=== PATIENT | female | born 1955 | race Caucasian/White ===

== ENCOUNTER → 2018-09-28 | Outpatient (CLI) | payer OTHER, SELFPAY ==
[2018-09-30 14:18] LABS: HPV Reflexed? NOT INDICATED
== END | disposition home or self-care (01) ==
LOC: LABSPEC 12:02
PROVIDERS: Family Provider Family Medicine; PCP Family Medicine; Referring Provider Nurse Practitioner Adult Health; Visit Provider Nurse Practitioner Adult Health
DX: Z01.419 Encounter for gynecological examination (general) (routine) without abnormal findings (principal)
CPT/HCPCS: 88175; G0145

== ENCOUNTER → 2019-03-25 08:29 | Outpatient (CLI) | payer OTHER, SELFPAY ==
[2019-03-25 10:21] LABS: Anion Gap 6 (5-15); BUN 15 mg/dL (7-18); BUN/Creat Ratio 19.8 RATIO (10-20); Calcium,Total 9.4 mg/dL (8.5-10.1); Chloride 105 mmol/L (98-107); Cholesterol 221 mg/dL (200); Creatinine, Serum 0.76 mg/dL (0.55-1.02); EST Glomerular Filtration Rate 82 mL/min (>60); Est Glom Filt Rate - Afr Amer 99 mL/min (>60); Glucose 100 mg/dL (74-106); High Density Lipoprotein 57 mg/dL; Sodium Level 138 mmol/L (136-145); Triglycerides 93 mg/dL; Very Low Density Lipoprotein 19 mg/dL (5-40)
[2019-03-25 10:35] LABS: Vitamin D,25 Hydroxy 32.8 ng/mL (29.95-100.01)
== END ==
PROVIDERS: PCP Family Medicine; Referring Provider Family Medicine; Visit Provider Family Medicine
DX: E55.9 Vitamin D deficiency, unspecified (principal); I10 Essential (primary) hypertension
CPT/HCPCS: 36415; 80048; 80061; 82306

== ENCOUNTER → 2019-09-23 08:29 | Outpatient (CLI) | payer OTHER, SELFPAY ==
[2019-09-23 10:02] LABS: Anion Gap 6 (5-15); BUN 12 mg/dL (7-18); BUN/Creat Ratio 14.3 RATIO (10-20); Calcium,Total 9.6 mg/dL (8.5-10.1); Chloride 105 mmol/L (98-107); Cholesterol 224 mg/dL (200); Creatinine, Serum 0.84 mg/dL (0.55-1.02); EST Glomerular Filtration Rate 72 mL/min (>60); Est Glom Filt Rate - Afr Amer 88 mL/min (>60); Glucose 104 mg/dL (74-106); High Density Lipoprotein 56 mg/dL; Potassium 3.9 mmol/L (3.5-5.1); Sodium Level 139 mmol/L (136-145); Triglycerides 105 mg/dL; Very Low Density Lipoprotein 21 mg/dL (5-40)
== END ==
PROVIDERS: PCP Family Medicine; Referring Provider Family Medicine; Visit Provider Family Medicine
DX: I10 Essential (primary) hypertension (principal)
CPT/HCPCS: 36415; 80048; 80061

== ENCOUNTER 2020-05-16 06:28 | Day surgery (SDC) | payer OTHER, SELFPAY ==
[2020-04-17 09:11] VITALS: BMI 29.0
[2020-05-16] VITALS (7 sets, daily range): BP systolic 108–153; BP diastolic 53–93; PULSE 74–98; RESP 16–18; TEMP 35.9–36.6; O2SAT 100; BMI 27.6
[2020-05-16] MEDS: Lactated Ringers 1,000 ML 100 ML IV (07:00)
--- NOTE | 2020-05-16 07:22 | HP.PCM_ITS ---
History and Physical Date of Admission: 05/16/20 Date of Service: 04/17/20 MR#: [id number] Acct: [id number] Name: ABAD LOVE Rep #: [id number] : 1955 Provider: Dr. Rafaela Giraldo MD Age/Sex: 64/F Location: [facility] Status: Signed Intake Vital Signs 04/17/20 Height 5 ft 3 in 04/17/20 Weight: 164 lb 2 oz 04/17/20 BMI 29.0 04/17/20 BP 159/99 H 04/17/20 Blood Pressure Location Lt brachial 04/17/20 Position Sitting 04/17/20 Respiration 18 04/17/20 Pulse 96 04/17/20 Pulse Source NIBP 04/17/20 Temp 97.7 F L 04/17/20 Temp Source Temporal 04/17/20 Pulse Oximetry (%) 100 04/17/20 Oxygen Delivery Method room air Intake Visit Reasons: POSITIVE COLOGUARD, CSCOPE Chief Complaint: positive cologuard Merchandise Flow Team Leader Required: No Is patient in pain?: No Allergies Sulfa (Sulfonamide Antibiotics) Allergy (Intermediate, Verified 04/17/20 09:12) hives, mental status change Medications betamethasone valerate 0.1 % lotion ml TOPICAL 04/17/20 [History Confirmed 04/17/20] cholecalciferol (vitamin D3) 25 mcg (1,000 unit) capsule 25 mcg PO DAILY 04/17/20 [History Confirmed 04/17/20] lisinopril 20 mg-hydrochlorothiazide 12.5 mg tablet 1 tab PO DAILY tab 04/17/20 [History Confirmed 04/17/20] rosuvastatin 10 mg tablet 10 mg PO DAILY tab 04/17/20 [History Confirmed 04/17/20] Is last menstrual period known: No Post menopausal: Yes Patient : No PFSH Medical History Hyperlipidemia (Acute) Osteoarthritis (Acute) HTN (hypertension) (Chronic) Surgical History History of cholecystectomy (Acute ~1984) History of colonoscopy (Acute ~08/2008) History of thyroid surgery (Acute ~1973) Family History Sister Heart disease Thyroid disorder Breast cancer COPD (chronic obstructive pulmonary disease) Myocardial infarction Social History (Updated 04/17/20 @ 09:[address] Hedy Giraldo MD) Smoking Status: Light Smoker (<10/day) HPI HPI HPI: ABAD LOVE, is a 64 F who presents to the office today for HPI HPI Surgical H&P: Yes HPI: ABAD LOVE, is a 64 F who presents to the office today for positive Cologuard. Patient states she has bowel movements daily denies any blood denies any family history of colon cancer. Patient last colonoscopy was about 11 years ago thinks she had 1 polyp but was told 10 years. Patient denies any chronic abdominal pain/nausea/vomiting. Patient states she may have reflux symptoms maybe once every 2 months depending on what she eats. ROS General General: No weight change, fatigue, colon cancer, breast cancer or weakness HEENT HEENT: No difficulty swallowing, eye injury, eye surgery, swollen glands or hoarseness Endo Endocrine: No thyroid disease, diabetes mellitus, thyroid cancer, Hair loss, heat intolerance or cold intolerance Musc Musculoskeletal: Yes arthritis; no back problems, rheumatoid arthritis, gout or joint pain Cardio Cardiovascular: Yes high blood pressure; no murmur, pacemaker, heart disease, atrial fibrillation, heart attack, heart stent, palpitations, shortness of breat with exertion or chest pain Psych Psychiatric: No depression, anxiety or hearing voices Resp Respiratory: No shortness of breath, No sleep apnea, No cough, No COPD, No asthma, No emphysema, No wheezing Gastro Gastrointestinal: No abdominal pain, No nausea or vomiting, No diarrhea, No constipation, No blood in stool, No acid reflux, No hemorrhoids, No ulcers, No gallbladder problem, No black,tarry stools Manish Hematologic: No blood thinners, No blood disorders, No bleeding, No anemia, No blood clots Neuro Neurologic: No weakness Exam Const General: cooperative, comfortable, no acute distress Resp Effort & Inspection: normal respiratory effort Cardio Rate: regular rate Heart Sounds: no murmurs GI Inspection: non-distended Palpation: soft, no guarding, nontender Extrem General: no clubbing, cyanosis or edema Psych Affect: normal affect Assessment & Plan Problems 1. Positive colorectal cancer screening using Cologuard test R19.5 Plan I have discussed the above with the patient. I have offered the patient EGD and colonoscopy for evaluation. I have explained the risks/benefits of the procedure and described the procedure. I have discussed the risks with the patient, including but not limited to: infection, bleeding, perforation of the GI tract requiring emergency surgery, inability to complete the procedure, injury to any internal organs, complications of anesthesia, etc. - the patient understands and agrees to proceed. I have answered all the patient's questions to the patient's satisfaction and the patient has no further questions. The patient has been given instructions for the colon cleansing preparation. 1 day of clears, MiraLAX Dulcolax split prep?patient requested May 16 Hedy Giraldo M.D. Pager: [phone] [facility] [address] [place] [address] [address] [place] [id number] Office: [phone] Orders Orders: Colonoscopy Today EGD Today Plan Detail Follow Up We will schedule EGD and colonoscopy?May 16 Coding Level of Care Code Off vis,new,level 3 Diagnoses Positive colorectal cancer screening using Cologuard test R19.5 COVID (Procedure Consent) Procedure Criteria Procedure Criteria: Yes Elective The surgeon/proceduralist and patient have discussed in detail the risk of exposure to and/or potential harm posed by the COVID-19 virus with having a surgery/procedure at this time versus the risk of? delaying the surgery/procedure. It is not possible to know either the risk of delaying the surgery or procedure or chance of getting an infection with perfect accuracy, but a joint decision was made between the patient and the surgeon/proceduralist ?to proceed at this time with the scheduled surgery/procedure as indicated on the consent form. 04/17/20 9538 <Electronically signed by Hedy Menchaca am, MD> Date _ Hedy Giraldo MD
--- NOTE | 2020-05-16 07:30 | EGD_PTH ---
PATIENT: ABAD LOVE LOC: EN U#:[id number] AGE/SX: 64/F ROOM: RE05/16/[address]: Dr. Hedy Giraldo MD : 1955 BED: DIS: 05/16/2020 SPEC #: [id number] RECD: 05/16/20 10:39 STATUS: ZINA REGolden #: [id number] ROCIO: 05/16/20 07:[address]: Hedy Giraldo DEPT: SURGICAL PATHOLOGY RECD BY: Heather Wayne ENTERED: 05/16/20 12:47 SP TYPE: EGD BIOPSY OT DR: Dr. Wilver Etienne MD Tissues: A - Gastric mucous membrane B - Gastric mucous membrane Procedures: Special Stain Group II Surgery Specimen Level IV Alcian Blue/PAS (control) HEADER OPERATION: Colonoscopy, EGD ([facility] [place]) PRE-OP DIAGNOSIS: Cancer screening TISSUE SUBMITTED: A - Antrum biopsy for H. pylori and path, B - GE junction biopsy MICROSCOPIC DIAGNOSIS A. Antrum, biopsy: Mild gastritis. See microscopic description and comment. B. GE junction, biopsy: A fragment of gastric mucosa with mild to moderate chronic inflammation. Intestinal metaplasia (goblet cell metaplasia) not identified. See comment. SJ:rg 05/17/2020 COMMENT A. The results of immunohistochemistry for Helicobacter pylori will be reported separately ([id number]). B. Alcian blue/PAS stain with matched control is used in the evaluation of the specimen. MICROSCOPIC DESCRIPTION Slides are reviewed. A. The specimen shows fragments of gastric mucosa with chronic inflammatory cell infiltrates in the lamina propria consisting of lymphocytes and plasma cells, consistent with mild chronic gastritis. GROSS DESCRIPTION A - Received in fixative is one container labeled with the patient's name and designated antrum biopsy. The specimen consists of one irregular fragment of light gates soft tissue that measures 0.5 x 0.3 x 0.1 cm. The specimen is totally submitted in one cassette. B - Received in fixative is one container labeled with the patient's name and designated GE junction biopsy. The specimen consists of one irregular fragment of light gates soft tissue that measures 0.4 x 0.3 x 0.1 cm. The specimen is totally submitted in one cassette. / JESICA:lexa 05/16/20 TC:3 CPT: 56046 x2, 05821
--- NOTE | 2020-05-16 07:30 | IMM_PTH ---
PATIENT: ABAD LOVE LOC: EN U#:[id number] AGE/SX: 64/F ROOM: RE05/16/[address]: Dr. Hedy Giraldo MD : 1955 BED: DIS: 05/16/2020 SPEC #: [id number] RECD: 05/16/20 12:58 STATUS: ZINA REQ #: [id number] ROCIO: 05/16/20 07:[address]: Hedy Giraldo DEPT: IMMUNOHISTOCHEMISTRY RECD BY: Marcella Ferguson ENTERED: 05/16/20 12:58 SP TYPE: IMMUNO OTHR DR: Dr. Wilver Etienne MD Tissues: A - Stomach, NOS Procedures: H Pylori (initial) PHYSICIAN & INSTITUTION [place] [address] SPECIMEN INFORMATION: Tissue Source: A - Antrum biopsy Clinical Info: Cancer screening Specimen Number: [id number] CPT code: 33495 METHODOLOGY: Deparaffinized sections of prefer/formalin-fixed tissue or PAP/DQ stained slides are incubated with monoclonal/polyclonal antibodies/oligonucleotide probes. Localization is made via biotin free immunoperoxidase method. Appropriate controls are performed and reacted as expected. Results on target cell population are indicated in the following table: RESULTS: ANTIBODY / CLONE RESULT Block A H Pylori (polyclonal) negative These tests were developed and their performance characteristics determined by [facility]. They may not have been cleared or approved by the U.S. Food and Drug Administration. The FDA has determined that such clearance or approval is not necessary. INTERPRETATION: A. Antrum, biopsy: Negative for Helicobacter pylori organisms. JESICA:lexa 05/17/2020
--- NOTE | 2020-05-16 08:05 | OP.EGD_ITS ---
Patient Name: Tona Izquierdo Procedure Date: 05/16/2020 7:14 AM Date of : 1955 Age: 64 Procedure: Upper GI endoscopy Indications: +cologuard Providers: Hedy Giraldo MD Referring MD: Wilver Etienne MD Medicines: Monitored Anesthesia Care Patient Profile: This is a 64 year old female. Complications: No immediate complications. Procedure: Pre-Anesthesia Assessment: - Prior to the procedure, a History and Physical was performed, and patient medications and allergies were reviewed. The patient's tolerance of previous anesthesia was also reviewed. The risks and benefits of the procedure and the sedation options and risks were discussed with the patient. All questions were answered, and informed consent was obtained. Prior Anticoagulants: The patient has taken no previous anticoagulant or antiplatelet agents. ASA Grade Assessment: Per anesthesia. After reviewing the risks and benefits, the patient was deemed in satisfactory condition to undergo the procedure. After obtaining informed consent, the endoscope was passed under direct vision. Throughout the procedure, the patient's blood pressure, pulse, and oxygen saturations were monitored continuously. The gastroscope was introduced through the mouth, and advanced to the second part of duodenum. The upper GI endoscopy was accomplished without difficulty. The patient tolerated the procedure well. Scope In: 7:29:25 AM Scope Out: 7:35:30 AM Total Procedure Duration Time 0 hours 6 minutes 5 seconds Findings: The Z-line was irregular and was found 36 cm from the incisors. Biopsies were taken with a cold forceps for histology. Moderately erythematous mucosa without bleeding was found in the gastric antrum. Biopsies were taken with a cold forceps for Helicobacter pylori cultures. Biopsies were taken with a cold forceps for histology. The examined duodenum was normal. The cardia and gastric fundus were normal on retroflexion. Impression: - Z-line irregular, 36 cm from the incisors. Biopsied. - Erythematous mucosa in the antrum. Biopsied. - Normal examined duodenum. Recommendation: - Await pathology results. - Discharge patient to home. - Resume previous diet. - Continue present medications. - Use Protonix (pantoprazole) 40 mg PO daily for 1 month. Procedure Code(s): --- Professional --- 65291, Esophagogastroduodenoscopy, flexible, transoral; with biopsy, single or multiple Diagnosis Code(s): --- Professional --- K22.8, Other specified diseases of esophagus K31.89, Other diseases of stomach and duodenum CPT copyright 2017 [employer]. All rights reserved. The codes documented in this report are preliminary and upon costume director review may be revised to meet current compliance requirements. MD Hedy Acevedo MD 05/16/2020 8:05:31 AM This report has been signed electronically. Number of Addenda: 0 Note Initiated On: 05/16/2020 7:14 AM
--- NOTE | 2020-05-16 08:05 | OP.CCLET_ITS ---
05/16/2020 Wilver Etienne MD [address] [id number] Re : Upper GI endoscopy procedure for Tona Izquierdo Dear Dr. Etienne This procedure was performed on Saturday, May 16, 2020. My impressions and recommendations are as follows: Impressions : - Z-line irregular, 36 cm from the incisors. Biopsied. - Erythematous mucosa in the antrum. Biopsied. - Normal examined duodenum. Recommendations : - Await pathology results. - Discharge patient to home. - Resume previous diet. - Continue present medications. - Use Protonix (pantoprazole) 40 mg PO daily for 1 month. My findings are described in the full procedure note, which is enclosed. If I can be of further assistance, please feel free to contact me at Doctor phone number(s): , Work: . Sincerely, MD Hedy Acevedo MD 05/16/2020 8:05:31 AM This report has been signed electronically.
--- NOTE | 2020-05-16 08:09 | OP.CCLET_ITS ---
05/16/2020 Wilver Etienne MD [address] [place] [address] Re : Colonoscopy procedure for Tona Izquierdo Dear Dr. Etienne This procedure was performed on Saturday, May 16, 2020. My impressions and recommendations are as follows: Impressions : - Hemorrhoids found on perianal exam. - Non-bleeding internal hemorrhoids. - Diverticulosis in the sigmoid colon and in the descending colon. - The examination was otherwise normal. - No specimens collected. Recommendations : - Discharge patient to home. - High fiber diet. - Continue present medications. - Repeat colonoscopy in 10 years for screening purposes. My findings are described in the full procedure note, which is enclosed. If I can be of further assistance, please feel free to contact me at Doctor phone number(s): , Work: . Sincerely, MD Hedy Acevedo MD 05/16/2020 8:08:47 AM This report has been signed electronically.
--- NOTE | 2020-05-16 08:09 | OP.COLON_ITS ---
Patient Name: Tona Izquierdo Procedure Date: 05/16/2020 7:37 AM Date of : 1955 Age: 64 Procedure: Colonoscopy Indications: Positive Cologuard test Providers: Hedy Giraldo MD Referring MD: Wilver Etienne MD Medicines: Monitored Anesthesia Care Patient Profile: This is a 64 year old female. Last Colonoscopy: more than 10 years ago. Complications: No immediate complications. Procedure: Pre-Anesthesia Assessment: - Prior to the procedure, a History and Physical was performed, and patient medications and allergies were reviewed. The patient's tolerance of previous anesthesia was also reviewed. The risks and benefits of the procedure and the sedation options and risks were discussed with the patient. All questions were answered, and informed consent was obtained. Prior Anticoagulants: The patient has taken no previous anticoagulant or antiplatelet agents. ASA Grade Assessment: Per anesthesia. After reviewing the risks and benefits, the patient was deemed in satisfactory condition to undergo the procedure. After I obtained informed consent, the scope was passed under direct vision. Throughout the procedure, the patient's blood pressure, pulse, and oxygen saturations were monitored continuously. The Colonoscope was introduced through the anus and advanced to the cecum, identified by appendiceal orifice and ileocecal valve. The colonoscopy was performed without difficulty. The patient tolerated the procedure well. The quality of the bowel preparation was good. Scope In: 7:37:53 AM Scope Withdrawal Time 0 hours 13 minutes 9 seconds Scope Out: 7:58:05 AM Total Procedure Duration Time 0 hours 20 minutes 12 seconds Findings: Hemorrhoids were found on perianal exam. Non-bleeding internal hemorrhoids were found. The hemorrhoids were Grade I (internal hemorrhoids that do not prolapse). Many medium-mouthed diverticula were found in the sigmoid colon and descending colon. The exam was otherwise without abnormality. Impression: - Hemorrhoids found on perianal exam. - Non-bleeding internal hemorrhoids. - Diverticulosis in the sigmoid colon and in the descending colon. - The examination was otherwise normal. - No specimens collected. Recommendation: - Discharge patient to home. - High fiber diet. - Continue present medications. - Repeat colonoscopy in 10 years for screening purposes. Procedure Code(s): --- Professional --- 89258, Colonoscopy, flexible; diagnostic, including collection of specimen(s) by brushing or washing, when performed (separate procedure) Diagnosis Code(s): --- Professional --- K64.0, First degree hemorrhoids R19.5, Other fecal abnormalities K57.30, Diverticulosis of large intestine without perforation or abscess without bleeding CPT copyright 2017 [employer]. All rights reserved. The codes documented in this report are preliminary and upon automobile appraiser review may be revised to meet current compliance requirements. MD Hedy Acevedo MD 05/16/2020 8:08:47 AM This report has been signed electronically. Number of Addenda: 0 Note Initiated On: 05/16/2020 7:37 AM
== END 2020-05-16 08:47 | disposition home or self-care (01) ==
LOC: EN 06:29 → AC 06:30
PROVIDERS: PCP Family Medicine; Referring Provider Family Medicine; Visit Provider Surgery
PROC: 0DJD8ZZ Inspection of Lower Intestinal Tract, Via Natural or Artificial Opening Endoscopic (ICD-10-PCS; CPT 45378; principal; 2020-05-16 07:25)
DX: K29.70 Gastritis, unspecified, without bleeding (principal); K64.0 First degree hemorrhoids; K57.30 Diverticulosis of large intestine without perforation or abscess without bleeding; Z20.828 Contact with and (suspected) exposure to other viral communicable diseases; I10 Essential (primary) hypertension; E78.5 Hyperlipidemia, unspecified; M19.90 Unspecified osteoarthritis, unspecified site; E78.00 Pure hypercholesterolemia, unspecified; Z78.0 Asymptomatic menopausal state; Z79.899 Other long term (current) drug therapy; Z87.891 Personal history of nicotine dependence
CPT/HCPCS: 43239; 45378; 87426; 88305; 88313; 88342; C9803; J7120; J2405

== ENCOUNTER → 2020-09-20 08:55 | Outpatient (CLI) | payer OTHER, SELFPAY ==
[2020-05-16 07:02] VITALS: BMI 27.6
[2020-09-20 10:12] LABS: Hematocrit 42.6 % (37-47); Hemoglobin 14.5 g/dL (12.0-15.0); Mean Corpuscular Hgb 31.3 pg (27.0-32.0); Mean Platelet Vol. 9.7 fl (6.2-12.0); Platelet Count 208 K/mm3 (150-450); RBC Distribution Width CV 11.9 % (11.6-14.6); RBC Distribution Width SD 39.9 fl (35.1-43.9); Red Blood Count 4.63 M/mm3 (4.2-5.4); White Blood Count 7.5 K/mm3 (4.4-11.0)
[2020-09-20 10:33] LABS: Anion Gap 8 (5-15); BUN 16 mg/dL (7-18); BUN/Creat Ratio 21.1 RATIO (10-20); Calcium,Total 9.9 mg/dL (8.5-10.1); Chloride 101 mmol/L (98-107); Cholesterol 170 mg/dL (200); Creatinine, Serum 0.76 mg/dL (0.55-1.02); EST Glomerular Filtration Rate 81 mL/min (>60); Est Glom Filt Rate - Afr Amer 98 mL/min (>60); Glucose 105 mg/dL (74-106); High Density Lipoprotein 60 mg/dL; Potassium 4.2 mmol/L (3.5-5.1); Sodium Level 137 mmol/L (136-145); Triglycerides 116 mg/dL; Very Low Density Lipoprotein 23 mg/dL (5-40)
== END ==
PROVIDERS: PCP Family Medicine; Visit Provider Family Medicine
DX: Z00.00 Encounter for general adult medical examination without abnormal findings (principal); I10 Essential (primary) hypertension
CPT/HCPCS: 36415; 80048; 80061; 85027

== ENCOUNTER → 2020-11-07 13:38 | Outpatient (CLI) | payer MEDICARE, SELFPAY ==
--- NOTE | 2020-11-07 13:39 | BI_ITS ---
MAMMOGRAPHY - BILATERAL SCREENING REASON FOR EXAM: Female, 65 years old. Routine annual screening examination. PERTINENT HISTORY: Sister with breast cancer. TECHNIQUE: Digital bilateral breast otf (3D mammographic acquisition) in the CC and MLO projections. 2-D mediolateral oblique (MLO) and craniocaudad (CC) views of both breasts were obtained. CAD: Full Field Digital Mammography with Computer Added Detection was performed. COMPARISON: No comparison mammograms available at this time. If any prior films become available, an addendum to this report can be generated. FINDINGS: Breast Composition: The breasts are heterogeneously dense, which may obscure small masses. There are no dominant masses or suspicious calcifications. There is a 2.3 cm Bard 2 cm dense lymph node in the left axilla. There is a 6.4 mm x 7 mm well-defined nodule in the retroareolar region of the left breast. Correlation with ultrasound is recommended. No other significant abnormalities are identified. BI/SCRN MAMM (CAD)W/OTF BILAT IMPRESSION: 6.4 mm x 7 mm well-defined nodule in the retroareolar region of the left breast. Prominent left axillary lymph node. Correlation with ultrasound is recommended. ASSESSMENT CATEGORY: BIRADS Category 0: Incomplete. Need additional imaging evaluation. A letter regarding these results will be sent to the patient by the facility within 30 days. Approximately 10% of breast cancers are not detected by mammography. A normal mammogram should not delay biopsy of a clinically suspicious abnormality. [id number] Electronically Signed: Mp Ernst MD at 14:28 EDT , Service support ,
== END ==
PROVIDERS: PCP Family Medicine; Referring Provider Family Medicine; Visit Provider Family Medicine
DX: Z12.31 Encounter for screening mammogram for malignant neoplasm of breast (principal)
CPT/HCPCS: 77063; 77067

== ENCOUNTER → 2020-11-09 08:18 | Outpatient (CLI) | payer MEDICARE, SELFPAY ==
--- NOTE | 2020-11-09 08:21 | US_ITS ---
STUDY: ULTRASOUND BREAST - LEFT REASON FOR EXAM: Female, 65 years old. Abnormal screening mammogram. TECHNIQUE: Axial and longitudinal images of the LEFT breast were performed with a high resolution ultrasound transducer. # OF IMAGES: 22 COMPARISON: Comparison is made with prior mammogram dated 11/07/2020. FINDINGS: LEFT Breast: There is a 6 mm x 7 mm x 6 mm hypoechoic well-defined nodule in the retroareolar region of the left breast. This is not a typical cyst. A biopsy recommended. There is evidence of a 2.4 cm x 1.6 x 0.9 cm abnormally enlarged lymph node in the left axilla. Biopsy is recommended. There is also evidence of a second lymph node in the left axilla measuring 1.7 cm x 0.7 cm x 0.9 cm. This appears to have a benign architecture. US/Breast Limited Unilateral IMPRESSION: Suspicious enlarged lymph nodes in the left axilla measuring 2.4 cm x 1.6 cm x 0.9 cm. 6 mm x 7 mm x 6 mm hypoechoic nodule in the retroareolar region of the left breast. Biopsy is recommended. ASSESSMENT CATEGORY: BIRADS Category 4: Suspicious - Biopsy Should Be Considered. A letter regarding these results will be sent to the patient by the facility within 30 days. Electronically Signed: Mp Ernst MD at 10:07 EDT , Service support ,
== END ==
PROVIDERS: PCP Family Medicine; Referring Provider Family Medicine; Visit Provider Family Medicine
DX: N63.42 Unspecified lump in left breast, subareolar (principal)
CPT/HCPCS: 76642

== ENCOUNTER → 2020-11-14 | Outpatient (CLI) | payer MEDICARE, SELFPAY ==
--- NOTE | 2020-11-14 | IMM_PTH ---
PATIENT: ABAD LOVE LOC: [facility] U#:[id number] AGE/SX: 65/F ROOM: RE11/14/[address]: Dr. Hedy Giraldo MD : 1955 BED: DIS: 11/14/2020 SPEC #: [id number] RECD: 11/15/20 13:15 STATUS: ZINA REQ #: [id number] ROCIO: 11/14/20 00:[address]: Hedy Giraldo DEPT: IMMUNOHISTOCHEMISTRY RECD BY: Marcella Ferguson ENTERED: 11/15/20 13:16 SP TYPE: IMMUNO OTHR DR: Dr. Wilver Etienne MD Tissues: B - Axilla, NOS Procedures: CALPONIN-1 (add) CK5-6 (add) CK8 (add) TOVAR-2 (add) E-CAD (add) HER2 DELFINO (add) KI-67 (add) MAMM (add) P53 (add) MI (add) GATA3 (add) P40 (add) ER (initial) PHYSICIAN & INSTITUTION [address] [address] SPECIMEN INFORMATION: Tissue Source: B - Left axilla Clinical Info: Left breast mass and left axillary lymph node enlargement Specimen Number: [id number] CPT code: 43535, 69881 x9, 64142 x3 METHODOLOGY: Deparaffinized sections of prefer/formalin-fixed tissue or PAP/DQ stained slides are incubated with monoclonal/polyclonal antibodies/oligonucleotide probes. Localization is made via biotin free immunoperoxidase method. Appropriate controls are performed and reacted as expected. Results on target cell population are indicated in the following table: RESULTS: ANTIBODY / CLONE RESULT Block B P53 (DO-7) positive, >90% Ki-67 (30-9) positive, >80% CK8 ([id number]) positive CK5-6 (D5 & 1684) positive Calponin-1 (RE973K) negative P40 (BC28) negative E-Cad (ECH-6) positive TOVAR-2 (SP21) positive GATA3 (L50-823) positive Mammaglobin (31A5) negative MORPHOMETRIC ANALYSIS ER (clone 6F11) 0 (negative) MI (clone 16/1E2) 0 (negative) Her-2Neu (clone CB11) 3+(positive) The prognostic test for HER2 is performed on formalin-fixed paraffin embedded tissue. A 3+ (positive) staining pattern is defined as intense, homogeneous, complete, circumferential membranous staining in >10% of contiguous tumor cells. A similar weak (2+) staining pattern is interpreted as equivocal. MOE follow-up testing is recommended for all equivocal cases. Positivity/negativity for ER/MI is reported if > or < 1% of the tumor cells are immuno- reactive, respectively. The ASCO/CAP criteria is used for scoring. Reference: Journal of Clinical Oncology, 2013; 31:3119-3177 & 2010; 16:4759-8083. Duration of fixation: 11 Hrs; Sample Adequate: Yes. These assays have not been validated on decalcified tissues. Results should be interpreted with caution given the likelihood of false negativity on decalcified specimens. These tests were developed and their performance characteristics determined by [facility]. They may not have been cleared or approved by the U.S. Food and Drug Administration. The FDA has determined that such clearance or approval is not necessary. The above immunohistochemical/dualISH markers are ordered and reviewed by the Pathologist. INTERPRETATION: Left axilla, core biopsy: Invasive ductal carcinoma, nuclear grade 2-3. Negative for estrogen receptors (unfavorable prognostic indicator). Negative for progesterone receptors (unfavorable prognostic indicator). Positive for overexpression of [id number]. AM:lexa 11/19/2020
--- NOTE | 2020-11-14 08:30 | BRBX_PTH ---
PATIENT: ABAD LOVE LOC: [facility] U#:[id number] AGE/SX: 65/F ROOM: RE11/14/[address]: Dr. Hedy Giraldo MD : 1955 BED: DIS: 11/14/2020 SPEC #: [id number] RECD: 11/14/20 10:41 STATUS: ZINA REGolden #: [id number] ROCIO: 11/14/20 08:[address]: Hedy Giraldo DEPT: SURGICAL PATHOLOGY RECD BY: Heather Wayne ENTERED: 11/14/20 11:19 SP TYPE: BREAST BX OTHR DR: Dr. Wilver Etienne MD Tissues: A - Left breast, NOS B - Axilla, NOS Procedures: Surgery Specimen Level IV HEADER OPERATION: Left breast mass and left axilla PRE-OP DIAGNOSIS: Left breast mass and left axillary lymph node enlargement TISSUE SUBMITTED: A ? Left breast, B ? Left axilla MICROSCOPIC DIAGNOSIS A. Left breast, core biopsy: Fibrocystic change. No evidence of malignancy. B. Left axilla, core biopsy: Invasive ductal carcinoma with the following characteristics: Maximal length ? 8.5 millimeters Nuclear grade ? 33 See comment. AM:lexa 11/15/2020 COMMENT B. ER/MD/Exh7ega studies are being performed on sections of tumor and the results from this study will be reported separately ([id number]). No lymph node tissue is identified. This case was reviewed and diagnosis discussed with Dr. Giraldo on 11/26/20. This case was discussed with Dr. Giraldo on 05/03/2021. Case has been reviewed in consultation with Dr. Lord who concurs with the above diagnosis. IDC:SJ MICROSCOPIC DESCRIPTION Slides are reviewed. GROSS DESCRIPTION A - Received in fixative is one container labeled with the patient's name and designated left breast. The specimen consists of multiple elongated fragments of gates-yellow fibroadipose tissue that in aggregate measure 1.5 x 0.2 x 0.1 cm. The entire specimen is submitted in one cassette. B - Received in fixative is one container labeled with the patient's name and designated left axilla biopsy. The specimen consists of multiple fragments of gates-yellow fibroadipose tissue that in aggregate measure 1.5 x 0.5 x 0.1 cm. The entire specimen is submitted in one cassette. / SJ:rg 11/14/20 TC:0 CPT: 00145 x2
== END | disposition home or self-care (01) ==
LOC: LABSPEC 10:50
PROVIDERS: PCP Family Medicine; Visit Provider Surgery
DX: C44.509 Unspecified malignant neoplasm of skin of other part of trunk (principal); N60.12 Diffuse cystic mastopathy of left breast
CPT/HCPCS: 88305; 88341; 88342

== ENCOUNTER → 2020-11-26 09:08 | Outpatient (CLI) | payer MEDICARE, SELFPAY ==
--- NOTE | 2020-11-26 09:09 | MRI_ITS ---
STUDY: BILATERAL BREAST MR WITHOUT AND WITH CONTRAST REASON FOR EXAM: Female, 65 years old. New breast cancer diagnosis. TECHNIQUE: Multi-sequence multi-echo imaging of both breasts was performed with a dedicated breast coil. T1-weighted and T2-weighted images were performed before the administration of contrast. T1-weighted images were also performed after the administration of IV 14ml Dotarem without complications. COMPARISON: Bilateral mammogram dated 11/07/2020 and left breast ultrasound dated 11/09/2020. FINDINGS: RIGHT BREAST: The breast tissue is heterogeneously dense with minimal background enhancement. Linear non-mass enhancement at the 12 o''clock position of the breast measuring approximately 12 mm x 3.6 cm x 2 cm. A second look ultrasound of the right breast is recommended for further evaluation of this finding. Scattered normal lymph nodes. LEFT BREAST: The breast tissue is heterogeneously dense with minimal background enhancement. There are no abnormal enhancing masses or areas of non-mass enhancement in the left breast. Solitary enlarged left axillary lymph node measuring 17 mm x 22 mm x 2 cm corresponding to the abnormality seen on the breast ultrasound dated 11/09/2020. There is no abnormality in the visualized regions of the chest or liver. MRI/Breast Bilateral W/O and W IMPRESSION: Solitary enlarged left axillary lymph node on the left corresponding to the ultrasonographic and mammographic findings. Linear non mass enhancement at the 12 o''clock position of the right breast for which further evaluation with second look ultrasound is recommended CATEGORY: BIRADS Category 0: Incomplete. Need additional imaging evaluation. A letter regarding these results will be sent to the patient by the facility within 30 days. Electronically Signed: Tomas Gordon MD at 13:46 EDT , Service support ,
[2020-11-26 10:26] LABS: CREATININE FINGERSTICK 0.7 mg/dL (0.55-1.02); EGFR FINGERSTICK > 60.0000 mL/min (>60)
== END ==
PROVIDERS: PCP Family Medicine; Referring Provider Surgery; Visit Provider Surgery
DX: C50.912 Malignant neoplasm of unspecified site of left female breast (principal)
CPT/HCPCS: 77049; A9575; A4216; C8908

== ENCOUNTER → 2020-11-28 08:54 | Outpatient (CLI) | payer MEDICARE, SELFPAY ==
--- NOTE | 2020-11-28 08:58 | US_ITS ---
STUDY: ULTRASOUND BREAST - RIGHT REASON FOR EXAM: Female, 65 years old. A normal MRI examination. TECHNIQUE: Axial and longitudinal images of the RIGHT breast were performed with a high resolution ultrasound transducer. # OF IMAGES: 21 COMPARISON: Comparison is made with prior MRI of the breasts dated 11/26/2020. FINDINGS: RIGHT Breast: The abnormality corresponds to a dilated duct at the 12 o''clock position of the breast at 1 cm from nipple. US/Breast Limited Unilateral IMPRESSION: Dilated duct. ASSESSMENT CATEGORY: BIRADS Category 2: Benign. A letter regarding these results will be sent to the patient by the facility within 30 days. Electronically Signed: Mp Ernst MD at 10:49 EDT , Service support ,
== END ==
PROVIDERS: PCP Family Medicine; Visit Provider Surgery
DX: C50.912 Malignant neoplasm of unspecified site of left female breast (principal); R59.0 Localized enlarged lymph nodes
CPT/HCPCS: 36415; 76642; 80053; 83615; 85025

== ENCOUNTER → 2020-12-03 06:41 | Outpatient (CLI) | payer MEDICARE, SELFPAY ==
--- NOTE | 2020-12-03 06:52 | CT_ITS ---
EXAM: CT CHEST, ABDOMEN AND PELVIS WITH INTRAVENOUS CONTRAST CLINICAL INDICATION: STAGING BREAST CANCER TECHNIQUE: Helically acquired images were obtained of the chest, abdomen and pelvis with intravenous contrast. This CT exam was performed using one or more of the following dose reduction techniques: automated exposure control, adjustment of the mA and/or kV according to patient size, and/or use of iterative reconstruction technique. This report was created using [employer] report generation technology. Oral contrast was administered. Coronal and sagittal reformatted images were created and reviewed. CONTRAST: 100mL Isovue-300 COMPARISON: None. FINDINGS: CHEST: LUNGS AND PLEURAL SPACES: Unremarkable. No mass. No consolidation or edema. No pleural effusion or thickening. No pneumothorax. HEART: Unremarkable. Heart size is normal. No pericardial effusion. MEDIASTINUM: Unremarkable. No mediastinal or hilar adenopathy. Esophagus is unremarkable. No hiatal hernia. THYROID: Unremarkable. No thyroid lesions. ABDOMEN: LIVER: Unremarkable. Homogeneous. No focal mass. GALLBLADDER AND BILE DUCTS: Cholecystectomy. No intra- or extrahepatic biliary ductal dilation. PANCREAS: Unremarkable. No focal cystic or solid mass. SPLEEN: Unremarkable. Normal size without focal cystic or solid mass. ADRENALS: Unremarkable. No nodules. KIDNEYS AND URETERS: Asymmetric right renal atrophy with cortical scarring. No hydronephrosis. STOMACH AND BOWEL: Colonic diverticulosis and colonic fecal residue but no colon wall thickening. No stomach or bowel distention. PELVIS: APPENDIX: No evidence of acute appendicitis. BLADDER: Unremarkable. REPRODUCTIVE: Uterus is atrophic. CHEST, ABDOMEN and PELVIS: INTRAPERITONEAL SPACE: Unremarkable. No ascites or other fluid collection. No free air. BONES/JOINTS: Degenerative changes of the thoracic and lumbar spine. Mild compression deformity of L3, chronic appearing. No suspicious lytic or blastic abnormality. SOFT TISSUES: Unremarkable. No discrete abdominal or pelvic wall hernia. VASCULATURE: Atherosclerosis of the abdominal aorta. Aorta is non-dilated. No aortic dissection. No obvious central pulmonary embolism although this study was not performed with the pulmonary embolism protocol. LYMPH NODES: Enlarged lobular lymph node of left axilla measures 1.[address]/CT Chest, Abd, Pel w/Contrast IMPRESSION: 1. Enlarged lobular lymph node of left axilla measures 1.3 x 2.5 cm. Suspicious left axillary adenopathy. Tissue sampling recommended, if not previously performed. 2. Additional chronic changes of the chest, abdomen and pelvis, as above. Electronically Signed: Erlin Schultz MD (Brooks) at 8:10 EDT , Service support ,
== END ==
PROVIDERS: PCP Family Medicine; Referring Provider Internal Medicine Medical Oncology; Visit Provider Internal Medicine Medical Oncology
DX: C50.912 Malignant neoplasm of unspecified site of left female breast (principal)
CPT/HCPCS: 71260; 74177; Q9967

== ENCOUNTER → 2020-12-06 07:40 | Outpatient (CLI) | payer MEDICARE, SELFPAY ==
--- NOTE | 2020-12-06 07:57 | NM_ITS ---
CLINICAL: 65-year-old female with reported history of carcinoma of the breast. WHOLE BODY 99m Tc MDP RADIONUCLIDE BONE SCINTIGRAPHY COMPARISON: CT of the chest, abdomen and pelvis reports 12/03/2020 FINDINGS: Following the intravenous administration of 26.8 mCi of 99m Tc MDP, whole body bone images reveal: 1. Focal increased radiopharmaceutical concentration is noted in the right anterior seventh rib at the costochondral junction. 2. Enhanced tracer distribution is observed in the mid cervical spine posteriorly on the left, first and eighth thoracic vertebra posteriorly on the right, caudal aspect of the right and left sacroiliac joints, fourth lumbar vertebra posteriorly on the left and right, the left knee, medial compartments of both ankles. 3. The remaining skeletal structures are scintigraphically unremarkable with normal-appearing renal images and urinary bladder activity identified. NM/Bone Scan Whole Body IMPRESSION: 1. The increase in radiopharmaceutical concentration identified in the right anterior seventh rib consistent with trauma-fracture. Plain film radiography correlation may be of benefit in the setting of known breast carcinoma. 2. Degenerative arthritis appears expressed in the cervical, thoracic and lumbar spine, bilateral sacroiliac joints, the left knee, ankle articulations bilaterally. 3. There is no definitive typical scintigraphic evidence of diffuse axial skeletal metastatic disease on the current examination. Electronically Signed: Aguila Carney DO at 23:11 EDT Tel , Service support ,
--- NOTE | 2020-12-06 08:07 | ECHODONC_ITS ---
Version 2 Reason For Study: PRE PROCEDURAL EXAM, PRE CHEMO Procedure This was a 2D Doppler, Color Flow transthoracic echocardiogram. Myocardial strain analysis was performed in this exam to aid in the assessment of cardiac function. The study was technically difficult. Exam performed in department. Left Ventricle Normal LV size. Left ventricular systolic function is normal. The estimated ejection fraction is 55 %. Stage 1 diastolic dysfunction. No regional wall motion abnormalities noted. Right Ventricle Normal RV size. Normal systolic function. Atria Normal left atrium. Normal right atrium. Mitral Valve Normal mitral valve. Tricuspid Valve Normal tricuspid valve. Mild (1+) tricuspid valve insufficiency. Pulmonary artery systolic pressure is 34 mmHg. Aortic Valve Normal aortic valve. Trisinus/trileaflet aortic valve. Pulmonic Valve Normal pulmonic valve. Great Vessels Normal aortic root. The pulmonary artery is normal size. Normal inferior vena cava. Pericardium/Pleural No pericardial effusion. MMode/2D Measurements & Calculations LVIDd: 3.8 cm IVSd: 1.0 cm Ao root diam: 3.1 cm LVIDs: 2.6 cm LVPWd: 0.99 cm RVDd: 2.5 cm FS: 31.2 % LAV(MOD-bp): 30.6 ml LA A4 area: 13.6 cm2 LA dimension(2D): 3.3 cm LAV(MOD-bp) Indexed: 17.2 ml/m2 LAV(MOD-sp2): 31.0 ml LAV(MOD-sp4): 31.3 ml RA A4 area: 8.0 cm2 Time Measurements MV dec time: 0.16 sec Doppler Measurements & Calculations MV E max beka: 92.0 cm/sec Lat Peak E' Beka: 7.8 cm/sec Med Peak E' Beka: 7.3 cm/sec MV A max beka: 110.1 cm/sec E/E' lat: 11.8 E/E' med: 12.6 MV E/A: 0.84 Ao V2 max: 149.5 cm/sec LV V1 max: 96.1 cm/sec PA V2 max: 110.2 cm/sec Ao max P.9 mmHg LV V1 max P.7 mmHg TR max beka: 270.2 cm/sec TR max P.2 mmHg ECHO/ONC Echo Complete Interpretation Summary Normal LV size. Left ventricular systolic function is normal. The estimated ejection fraction is 55 %. Stage 1 diastolic dysfunction. The global longitudinal strain is borderline abnormal. The global longitudinal strain = -16.7% (abnormal). Ordering Physician: Ravi Casas Referring Physician: Wilver Etienne Performed By: Holly Cordova, MARCOS, RVT
== END ==
PROVIDERS: PCP Family Medicine; Referring Provider Internal Medicine Medical Oncology; Visit Provider Internal Medicine Medical Oncology
DX: Z01.818 Encounter for other preprocedural examination (principal); C50.912 Malignant neoplasm of unspecified site of left female breast; R59.0 Localized enlarged lymph nodes
CPT/HCPCS: 78306; 93306; 93356; A9503

== ENCOUNTER 2020-12-12 05:49 | Day surgery (SDC) | payer MEDICARE, SELFPAY ==
[2020-12-12] VITALS (7 sets, daily range): BP systolic 113–123; BP diastolic 65–86; PULSE 75–91; RESP 16; TEMP 36.1–37; O2SAT 97–100; BMI 28.9
[2020-12-12] MEDS: Lactated Ringers 1,000 ML 100 ML IV (06:37)
--- NOTE | 2020-12-12 06:43 | PCM.HP.BLA ---
History and Physical Date of Admission: 12/12/20 Date of Service: 11/22/20 MR#:[id number]:[id number]: ABAD LOVE [facility] #:[id number]:[id number] Provider:Olamide Watters/Sex: 65/F [place] [place] Int[facility] Intake Visit Reasons: F/U PATHOLOGY Chief Complaint: abn breast US Allergies Sulfa (Sulfonamide Antibiotics) Allergy (Intermediate, Verified 11/14/20 08:19) hives, mental status change [facility] Medical History (Updated 11/22/20 @ 10:[address] Hedy Giraldo MD) HTN (hypertension) Hyperlipidemia Osteoarthritis Surgical History (Updated 05/16/20 @ 07:[address] Hedy Giraldo MD) History of cholecystectomy (~1984) History of colonoscopy (~08/2008) History of thyroid surgery (~1973) Family History (Updated 11/22/20 @ 10:[address] Hedy Giraldo MD) Sister Heart disease Thyroid disorder Breast cancer COPD (chronic obstructive pulmonary disease) Myocardial infarction Aunt Breast cancer Unknown Breast cancer Other Invasive ductal carcinoma of left breast Social History (Updated 04/17/20 @ 09:[address] Hedy Giraldo MD) Smoking Status: Former smoker HPI HPI HPI: ABAD LOVE, is a 65 F who presents to the office today for discussion of breast pathology after biopsy. Patient biopsy of a retroareolar nodule which was consistent with a cyst during the biopsy and was found to just have fibrocystic material on pathology. Patient's left axillary biopsy which could possibly be in the axillary tail of the breast tissue as well was invasive ductal carcinoma grade 3/3 ER/NV negative and HER-2 positive. MRI has been ordered as well as patient has been referred to oncology she does have appointment with Dr. Casas on the . Patient's MRI is currently scheduled for 05 December?MRI is looking to move up once approved through insurance. Exam Const General: cooperative, healthy appearing, comfortable and no acute distress Neck Neck: normal visual inspection Chest Other: Palpation of upper chest normal, left breast: Biopsy sites healing well. Resp Effort & Inspection: normal respiratory effort Cardio Rate: regular rate GI Inspection: non-distended Palpation: soft Skin General: no rashes or lesions noted Neuro General: patient oriented x3 Psych Affect: normal affect Assessment and Plan Assessment and Plan (1) Invasive ductal carcinoma of left breast: Status: Acute Plan: Discussed with and the patient exact treatment plan will depend upon MRI results. Unsure if the left axilla biopsy is actually a breast mass or left axillary lymph node. Also discussed hormone receptor status ER/NV negative and HER-2 positive. Discussed with patient and the that there could be a good chance of patient getting neoadjuvant treatment and then proceeding with surgery but would not know for sure until MRI is completed. Patient initially scheduled 12/05 for MRI. Discussed with MRI department awaiting approval from Medicare and then will plan to move up. Did also discuss with pre-[facility]ERT sounds like it has been approved and they are trying to work on moving the MRI date up to possibly 11/26. I have discussed above with the patient- Port-a-Cath placement. Right IJ-we will schedule after patient seen oncology and MRI is completed. Patient has been counseled as to the risks/benefits of the procedure. I have explained the risks of the surgery, including but not limited to: infection, bleeding, injury to any blood vessels/nerves, injury to lungs (such as pneumothorax or hemothorax and need for chest tube), not having any access, nonfunctioning of port due to thrombosis, infection of port, etc. the patient understands and agrees to proceed. I have answered all the patient's questions to the patient?s satisfaction and the patient has no further questions. Greater than 50% of direct patient contact was spent in counseling or coordination of care. I spent 25 minutes counseling the patient about breast treatment options/neoadjuvant/adjuvant chemotherapy and surgery and coordinating care. Hedy Giraldo M.D. Pager: [phone] [facility] [address] [place] [address], [address] [place] [id number] Office: [phone] Coding Level of Care Code Off vis,est,level 4 Diagnoses Invasive ductal carcinoma of left breast C50.912 11/22/20 1041<Electronically signed by Hedy Giraldo MD>Date Hedy Giraldo MD
[2020-12-12] MEDS: Cefazolin 2 GM in 0.9% Normal Saline 100 ML IV (07:30)
--- NOTE | 2020-12-12 08:03 | RAD_ITS ---
STUDY: X-RAY CHEST REASON FOR EXAM: Female, 65 years old. Port -- pacu TECHNIQUE: Single AP portable view of the chest. COMPARISON: None. FINDINGS: A right-sided portacatheter is been placed. The tip is in the midportion of the superior vena cava. EKG electrodes are seen. The lungs are clear and expanded. There is no demonstrated pleural abnormality. Normal size heart. Normal mediastinum and kennedi. Normal visualized pulmonary arteries. Normal visualized aortic arch and descending thoracic aorta. Normal visualized thoracic spine. Normal visualized ribs, clavicles, and shoulders. The patient is status post cholecystectomy. RAD/CXR for Line Placement IMPRESSION: The tip of the right-sided portacatheter is in the midportion of the superior vena cava. Electronically Signed: Mp Ernst MD at 8:35 EDT , Service support ,
--- NOTE | 2020-12-12 08:04 | OP.PCM_ITS ---
Report of Operation Date of Procedure: 12/12/20 Pre-Operative Diagnosis: z45.2, left ductal carcinoma axillary node Post-Operative Diagnosis: Same Surgery/Procedure Performed:: 1. Insertion of right IJ Port-A-Cath 2. Use of fluoroscopy 3. Use of fluoroscopy Surgeon: Hedy Giraldo Type of Anesthesia: Local MAC Anesthesiologist: Panfilo Huddleston Special Medications: Ancef 2 g IV x1 Estimated Blood Loss (mL): < 10 cc Description of Procedure: After informed consent was given, the patient was brought to the operating room and placed in the supine position. Appropriate time out protocol was followed. Patient was then given IV conscious sedation for anesthesia. The patient's right upper chest and neck were then prepped with a surgical skin preparation and sterile surgical drapes were placed. After proper landmarks were ascertained, the skin at the upper right chest area was then infiltrated with 1:1 mixture of 1% lidocaine with epinephrine and 0.5% marcaine. A needle trocar was then inserted into the right internal jugular vein with ultrasound guidance-multiple vessels were viewed with u/s and the right IJ was chosen-- and there was good aspiration of venous blood. A wire was then threaded into the needle trocar and this was visualized under fluoroscopy to ensure that the wire was in the superior vena cava. Once this was done, then the needle trocar was removed. A small skin chitra was made with an 11 blade knife at the wire entrance site. The dilator with the introducer sheath attached was then placed over the wire into the right internal jugular vein via the Seldinger technique and this was visualized under fluoroscopy. The dilator and sheath were in proper position as visualized by fluoroscopy. A subcutaneous pocket was then created caudad to the catheter insertion site. A transverse skin incision was made after the skin and subcutaneous tissues were infiltrated with local anesthetic. Blunt dissection was then used to create a space large enough for placement of the subcutaneous port. The catheter was then tunneled into the subcutaneous pocket. The wire and dilator were then removed. The catheter was then threaded into the introducer sheath and was positioned with its tip at the junction of the superior vena cava and the right atrium as visualized under fluoroscopy. The excess catheter was transected. The catheter was then attached to the subcutaneous port using manufacturers guidelines. The catheter was flushed with a heparin saline mixture prior to placement. Hemostasis was carefully controlled with electrocautery. The port was sutured to the subcutaneous fascia using 2-0 Vicryl suture at two sites. The port was then placed in the subc utaneous pocket. The incision were reapproximated with interrupted subdermal 3-0 vicryl sutures. The skin was reapproximated with 3-0 nylon suture in a interrupted fashion. Steristrips were used for reinforcement of the skin closure at IJ insertion site and a sterile opsite dressings were applied. The patient tolerated the procedure well. Implants Used: [employer] PowerPort isp M.R.I. 6Fr Lot [id number] [id number] Grafts/Implants Used: [employer] PowerPort isp M.R.I. 6Fr Lot [id number] [id number] Complications none
--- NOTE | 2020-12-12 08:06 | EX.PCM.DISCH ---
Discharge Instructions Procedure Port-A-Cath Diet Discharge Diet: No restrictions (ain medication may cause nausea. You should typically eat light foods as you take your pain medication.) Activity Discharge Activity: Return to Normal Activity and May Shower (with your bandage in place in 1-2 days after surgery. DO NOT SHOWER WHEN YOUR PORT IS ACCESSED.) Dressing / Incision Call your doctor if your incision/area has: Continuous Slow Oozing, Sudden Increased Bleeding, Increased Pain/ Swelling, Increased Redness and Foul Smelling Discharge Call your doctor if you observe: Fever of 101 or Higher Remove Dressing in: 3 days Additional Dressing/Incision Instructions:: Leave the bandage on for 2-3 days. When you remove the bandage, leave the steri-strips intact until they fall off. Follow Up Care Please Follow Up With: Hedy Giraldo MD When: Please call [phone] to schedule a follow up appointment to be seen in 7 days. Test Results: Test results from this visit will be discussed in further detail at your follow-up appointment, if applicable. Discharge Plan Admission Attending Provider: Hedy Giraldo Primary Care Provider: Wilver Etienne Discharge Orders/Prescriptions Prescriptions: New hydrocodone-acetaminophen 5-325 mg tablet 1 tab PO Q6H PRN (Reason: pain) 3 Days Qty: 5 RF: 0 No Action lisinopril-hydrochlorothiazide 20-12.5 mg tablet 1 tab PO DAILY RF: 0 betamethasone valerate 0.1 % lotion 1 % TOPICAL PRN PRN (Reason: SKIN IRRITATION) RF: 0 rosuvastatin 10 mg tablet 10 mg PO DAILY RF: 0 cholecalciferol (vitamin D3) 25 mcg (1,000 unit) capsule 25 mcg PO DAILY RF: 0 calcium carbonate [Calcium 600] 600 mg calcium (1,500 mg) Tablet 600 mg PO DAILY RF: 0 magnesium 200 mg Tablet 300 mg PO DAILY RF: 0 Referrals / Follow Up: Wilver Etienne MD [Primary Care Provider] - Disposition Disposition (needs filled in before D/C Order can be placed): Home, Self Care
== END 2020-12-12 09:15 | disposition home or self-care (01) ==
LOC: SDC 05:51 → AC 05:52
PROVIDERS: PCP Family Medicine; Referring Provider Surgery; Visit Provider Surgery
PROC: (CPT 36561; principal; 2020-12-12 07:15)
DX: Z45.2 Encounter for adjustment and management of vascular access device (principal); C50.912 Malignant neoplasm of unspecified site of left female breast; Z17.1 Estrogen receptor negative status [ER-]; I10 Essential (primary) hypertension; E78.5 Hyperlipidemia, unspecified; E78.00 Pure hypercholesterolemia, unspecified; L40.9 Psoriasis, unspecified; M19.90 Unspecified osteoarthritis, unspecified site; Z87.442 Personal history of urinary calculi; Z79.899 Other long term (current) drug therapy; Z87.891 Personal history of nicotine dependence
CPT/HCPCS: 00532; 36561; 71045; 77001; J7120; J2405

== ENCOUNTER 2021-03-12 09:54 | Outpatient (CLI) | payer MEDICARE, SELFPAY ==
--- NOTE | 2021-03-12 09:56 | ECHOLCONC_ITS ---
Reason For Study: CARDIOTOXIC DRUGS/CHEMOTHERAPY Procedure This was a limited 2D transthoracic echocardiogram. Myocardial strain analysis was performed in this exam to aid in the assessment of cardiac function. The study was technically difficult. Contrast injection was performed. Exam performed in department. Left Ventricle Normal LV size. Left ventricular systolic function is normal. The estimated ejection fraction is 60 %. No regional wall motion abnormalities noted. Right Ventricle Normal RV size. Normal systolic function. Atria Normal left atrium. Normal right atrium. Mitral Valve Normal mitral valve. Tricuspid Valve Normal tricuspid valve. Aortic Valve Normal aortic valve. Trisinus/trileaflet aortic valve. Pulmonic Valve Normal pulmonic valve. Great Vessels Normal aortic root. The pulmonary artery is normal size. Normal inferior vena cava. Pericardium/Pleural No pericardial effusion. Medication 22 gauge I.V. with prn adaptor inserted into left arm. Diluted definity 2.0ml given slow IV push to enhance endocardial definition. MMode/2D Measurements & Calculations LVIDd: 2.9 cm IVSd: 0.83 cm LAV(MOD-bp): 32.6 ml LVIDs: 2.1 cm LVPWd: 0.78 cm FS: 27.2 % LAV(MOD-bp) Indexed: 18.3 ml/m2 LAV(MOD-sp2): 40.3 ml LAV(MOD-sp4): 24.4 ml EDV(MOD-sp4): 69.6 ml EDV(MOD-sp2): 75.4 ml SV(MOD-sp4): 43.9 ml ESV(MOD-sp4): 25.7 ml ESV(MOD-sp2): 22.2 ml EF(MOD-sp4): 63.1 % EF(MOD-sp2): 70.6 % SV(MOD-sp2): 53.2 ml LA A4 area: 11.2 cm2 ECHO/ONC Echo Limited w/Contrast Interpretation Summary Normal LV size. Left ventricular systolic function is normal. The estimated ejection fraction is 60 %. No regional wall motion abnormalities noted. Compared to the previous the strain is unchanged. The global longitudinal strai n is mildly abnormal. The global longitudinal strain = -16.7% (abnormal). Ordering Physician: Ravi Casas Referring Physician: Ravi Casas Performed By: Dayana Fraga, RDCS, RVT
== END 2021-03-12 23:59 | disposition short-term general hospital (02) ==
PROVIDERS: PCP Family Medicine; Referring Provider Internal Medicine Medical Oncology; Visit Provider Internal Medicine Medical Oncology
DX: Z51.11 Encounter for antineoplastic chemotherapy (principal)
CPT/HCPCS: 93308; 93356; Q9957; A4216; C8924

== ENCOUNTER 2021-04-29 10:48 | Outpatient (CLI) | payer MEDICARE, SELFPAY ==
--- NOTE | 2021-04-29 10:48 | MRI_ITS ---
STUDY: BILATERAL BREAST MR WITHOUT AND WITH CONTRAST REASON FOR EXAM: Female, 65 years old. Assess response to neoadjuvant chemotherapy TECHNIQUE: Multi-sequence multi-echo imaging of both breasts was performed with a dedicated breast coil. T1-weighted and T2-weighted images were performed before the administration of contrast. T1-weighted images were also performed after the administration of IV Yes without complications. COMPARISON: FINDINGS: RIGHT BREAST: The breast tissue is heterogeneously dense with minimal background enhancement. There are no abnormal enhancing masses or areas of non-mass enhancement in the right breast. LEFT BREAST: The breast tissue is heterogeneously dense with minimal background enhancement. There are no abnormal enhancing masses or areas of non-mass enhancement in the left breast. Shotty lymph nodes in both axillae. There is no abnormality in the visualized regions of the chest or liver. MRI/Breast Bilateral W/O and W IMPRESSION: Shotty lymph nodes in both axillae. No other abnormality. CATEGORY: BIRADS Category 2: Benign. A letter regarding these results will be sent to the patient by the facility within 30 days. Electronically Signed: Tomas Gordon MD at 14:50 EDT ,
== END 2021-04-29 23:59 | disposition home or self-care (01) ==
PROVIDERS: PCP Family Medicine; Referring Provider Nurse Practitioner Family; Visit Provider Nurse Practitioner Family
DX: C50.912 Malignant neoplasm of unspecified site of left female breast (principal)
CPT/HCPCS: 36591; 77049; 80053; 83735; 85025; A9575; A4216; C8908

== ENCOUNTER 2021-05-20 07:42 | Outpatient (CLI) | payer MEDICARE, SELFPAY ==
[2021-05-20 07:52] VITALS: BP 128/71; PULSE 93; RESP 16; TEMP 36.3; O2SAT 100; BMI 27.1
[2021-05-20 08:29] VITALS: BP 131/73; PULSE 84; RESP 16; TEMP 36.4; O2SAT 99
[2021-05-20 08:51] VITALS: BP 127/69; PULSE 76; RESP 16; TEMP 36.5; O2SAT 99
[2021-05-20] MEDS: 0.9% NaCl VAD Flush IV (08:58)
== END 2021-05-20 23:59 | disposition home or self-care (01) ==
LOC: MEDOUTP 07:42
PROVIDERS: PCP Family Medicine; Referring Provider Surgery; Visit Provider Surgery
DX: D61.818 Other pancytopenia (principal)
CPT/HCPCS: 36430; 36591; 86900; 86901; 86965; J7040; P9035; A4216

== ENCOUNTER 2021-05-21 08:46 | Day surgery (SDC) | payer MEDICARE, SELFPAY ==
[2021-05-17 16:39] LABS: Absolute Lymphocyte Count 1.97 X10^3/uL (0.83-4.51); Absolute Neutrophil Count 1.8 X10^3/uL (2.0-7.7); Basophil# 0.01 X10^3/uL; Basophil% 0.2 % (0-1); Eosinophil# 0.03 X10^3/uL; Eosinophils% 0.7 % (0-5); Hemoglobin 10.5 g/dL (12.0-15.0); Lymphocyte # 1.97 X10^3/ul (0.83-4.51); Lymphocyte % 45.2 % (19-41); Mean Corpuscular Hgb 39.2 pg (27.0-32.0); Mean Corpuscular Volume 111.9 fL (81-99); Mean Platelet Vol. 9.1 fl (6.2-12.0); Monocyte% 11.5 % (0-10); NRBC Flagged by Analyzer 0 % (0-5); Neutrophil # 1.84 X10^3/uL (2.7-7.7); Neutrophil % 42.2 % (47-70); POSITIVE MORPHOLOGY YES; Platelet Count 162 K/mm3 (150-450); RBC Distribution Width CV 14.7 % (11.6-14.6); RBC Distribution Width SD 60.8 fl (35.1-43.9); Red Blood Count 2.68 M/mm3 (4.2-5.4); White Blood Count 4.4 K/mm3 (4.4-11.0)
[2021-05-17 17:10] LABS: Differential Indicated SCAN CRITERIA MET
[2021-05-17 17:12] LABS: Anisocytosis 1+; Atypical Lymphocyte 1+ %; Macrocytosis 1+; Platelet Estimate ADEQUATE (ADEQ); Red Cell Morphology N CHROM NORMAL (NORM C&C)
[2021-05-20 13:19] LABS: Pathologist Review Reviewed
[2021-05-21] VITALS (7 sets, daily range): BP systolic 137–153; BP diastolic 62–97; PULSE 76–94; RESP 16–18; TEMP 36.1–36.8; O2SAT 96–100; BMI 26.5
--- NOTE | 2021-05-21 | AXNB_PTH ---
PATIENT: ABAD LOVE [place] [facility] [id number] AGE/SX: 65/F ROOM: RE05/21/[address]: Dr. Hedy Giraldo MD : 1955 BED: DIS: 05/21/2021 SPEC #: [id number] RECD: 05/21/21 13:14 STATUS: ZINA REGolden #: [id number] ROCIO: 05/21/21 00:[address]: Hedy Giraldo DEPT: SURGICAL PATHOLOGY RECD BY: Marcella Ferguson ENTERED: 05/21/21 13:58 SP TYPE: AX NODE BX OTHR DR: Dr. Wilver Etienne MD Tissues: A - Axillary lymph node, NOS B - Left breast, NOS Procedures: Frozen Section (charge) Surgery Specimen Level IV Surgery Specimen Level V HEADER OPERATION: Left breast wire loc lumpectomy with sentinel lymph node biopsy PRE-OP DIAGNOSIS: Invasive ductal carcinoma of left breast TISSUE SUBMITTED: A ? Left axillary sentinel lymph node, FS, B ? Left breast mass FROZEN SECTION DIAGNOSIS A. Left axillary sentinel lymph node, biopsy: One out of one lymph node, negative for carcinoma. AM: 05/21/2021 MICROSCOPIC DIAGNOSIS A. Left axillary sentinel lymph node, biopsy: One out of one lymph node negative for carcinoma. See comment. B. Left breast mass, lumpectomy: Four out of four lymph node negative for carcinoma. No evidence of malignancy. See comment. AM: 05/27/2021 COMMENT A. Immunohistochemistry ([id number]) supports the above diagnosis. B. Sections of the lumpectomy show fibrofatty and fibrovascular tissue. Four benign lymph nodes are identified in the specimen and all four are negative for carcinoma. Immunohistochemistry ([id number]) supports the above diagnosis. INVASIVE BREAST CARCINOMA SUMMARY (inclusive of previous biopsy [id number]) Procedure: Excision with wire guidance Specimen: Type: Partial breast Size: 4 x 4 x 1.5 cm Laterality: Left breast Tumor: No evidence of residual tumor. Size: 8.5 mm (from previous biopsy) Histologic type: Invasive ductal carcinoma. Focality: Not applicable Histologic grade: 3/3 Ductal Carcinoma In Situ: Not identified Lobular Carcinoma In Situ: Not identified Tumor extension: No applicable Margins: All margins are free of carcinoma. Lymph Nodes: Number of sentinel lymph nodes examined: 1 Total number of lymph nodes examined: 5 No evidence of macrometastases, micrometastases or isolated tumor cells. Treatment Effect: Suspected ? Lymphvascular invasion: Not identified Additional Pathologic Findings: Focal changes of previous biopsy. Ancillary Studies: Previously performed ([id number] / [id number]) ER: negative (0%) LA: negative (0%) Qpm0nzb: positive (3+) IHC Ki67: positive (>80%) Microcalcifications: Not identified. Clinical History: Mass of left breast. PATHOLOGIC STAGE: ypT0 N0 Mx The above summary is in compliance with [employer] (CAP) Cancer Protocol Checklist and [place] Joint Committee on Cancer (AJCC) Staging Manual, 8th Ed. This case was discussed with Dr. Giraldo on 05/24/2021 at 10:35 a.m. Case has been reviewed in consultation with Dr. Lord who concurs with the above diagnosis. IDC:[id number] MICROSCOPIC DESCRIPTION Slides are reviewed. GROSS DESCRIPTION A - Received fresh for frozen section consultation labeled with the patient's name is a specimen designated left axillary sentinel lymph node. The specimen consists of an irregular fragment of yellow fatty tissue measuring 1.8 x 1 x 0.5 cm. Dissection reveals an elongated nodule measuring 1.8 cm in greatest dimension. The nodule is submitted in its entirety for frozen section consultation in one block. B - Received in fixative is one container labeled with the patient's name and designated lumpectomy. The specimen consists of a lumpectomy specimen measuring 4 x 4 x 1.5 cm and weighing 8.1 gm. The specimen contains a metallic wire and is oriented and is differentially inked as follows: anterior - yellow, posterior - black, superior - blue, inferior - green, medial - red and lateral - orange. Serial sections reveal an irregular fibrous area measuring 1.2 x 1 cm and located 0.2 cm from its closest (inferior) margin of resection. The gross is discussed with the surgeon intraoperatively. An ovoid nodule measuring 7 mm is present and may represent a lymph node. The specimen is totally submitted as follows: 1-3 ? fibrous area, 4 ? possible lymph node, 5-10 ? remainder of the specimen. / AM:lexa 05/22/2021 TC:5 CPT: 53941, 68859, 38691
--- NOTE | 2021-05-21 | IMM_PTH ---
PATIENT: ABAD LOVE LOC: [facility] – [place] U#:[id number] AGE/SX: 65/F ROOM: RE05/21/[address]: Dr. Hedy Giraldo MD : 1955 BED: DIS: 05/21/2021 SPEC #: [id number] RECD: 05/24/21 11:16 STATUS: ZINA REQ #: [id number] ROCIO: 05/21/21 00:[address]: Hedy Giraldo DEPT: IMMUNOHISTOCHEMISTRY RECD BY: Marcella Ferguson ENTERED: 05/24/21 11:17 SP TYPE: IMMUNO OTHR DR: Dr. Wilver Etienne MD Tissues: A - Axillary lymph node, NOS B - Left breast, NOS Procedures: CK7 (add) Pankeratin (initial) Pankeratin (add) PHYSICIAN & INSTITUTION [place] [id number] SPECIMEN INFORMATION: Tissue Source: A ? Left axillary sentinel lymph node, B ? Left breast mass Clinical Info: Invasive ductal carcinoma of left breast Specimen Number: [id number] A, B1, B2, B4, B6 CPT code: 61098 x2, 74324 x8 METHODOLOGY: Deparaffinized sections of prefer/formalin-fixed tissue or PAP/DQ stained slides are incubated with monoclonal/polyclonal antibodies/oligonucleotide probes. Localization is made via biotin free immunoperoxidase method. Appropriate controls are performed and reacted as expected. Results on target cell population are indicated in the following table: RESULTS: ANTIBODY / CLONE RESULT Block A AE1-3 (AE1/AE3/PCK26) negative CK7 (OV-TL12/30) negative Block B1 AE1-3 (AE1/AE3/PCK26) negative CK7 (OV-TL12/30) negative Block B2 AE1-3 (AE1/AE3/PCK26) negative CK7 (OV-TL12/30) negative Block B4 AE1-3 (AE1/AE3/PCK26) negative CK7 (OV-TL12/30) negative Block B6 AE1-3 (AE1/AE3/PCK26) negative CK7 (OV-TL12/30) negative These tests were developed and their performance characteristics determined by [facility]. They may not have been cleared or approved by the U.S. Food and Drug Administration. The FDA has determined that such clearance or approval is not necessary. The above immunohistochemical/dualISH markers are ordered and reviewed by the Pathologist. INTERPRETATION: A. Left axillary sentinel lymph node, biopsy: One out of one lymph node negative for carcinoma. B. Left breast mass, lumpectomy: Four out of four lymph nodes negative for carcinoma. AM:lexa 05/27/2021
--- NOTE | 2021-05-21 08:58 | HP.PCM_ITS ---
History and Physical Date of Admission: 05/21/21 Date of Service: 05/03/21 MR#:[id number]:[id number]: ABAD LOVE [facility] #:[id number]:1955 Provider:Olamide Watters/Sex: 65/F [facility] Int[facility] Visit Reasons: BREAST MRI 04/29 Chief Complaint: discuss breast MRI Whipper Required: No Is patient in pain?: No Allergies Sulfa (Sulfonamide Antibiotics) Allergy (Intermediate, Verified 05/03/21 12:52) hives, mental status change Medications betamethasone valerate 0.1 % lotion 1 % TOPICAL PRN PRN 04/17/20 [History Confirmed 05/03/21] cholecalciferol (vitamin D3) 25 mcg (1,000 unit) capsule 25 mcg PO DAILY 04/17/20 [History Confirmed 05/03/21] lisinopril 20 mg-hydrochlorothiazide 12.5 mg tablet 1 tab PO DAILY tab 04/17/20 [History Confirmed 05/03/21] rosuvastatin 10 mg tablet 10 mg PO DAILY tab 04/17/20 [History Confirmed 05/03/21] calcium carbonate [Calcium 600] 600 mg PO DAILY 12/11/20 [History Confirmed 05/03/21] magnesium 300 mg PO DAILY 12/11/20 [History Confirmed 05/03/21] hydrocodone-acetaminophen 1 tab PO Q6H PRN 3 Days #5 tab 12/12/20 [Rx Confirmed 05/03/21] lidocaine-prilocaine 2.5 %-2.5 % topical cream 1 applic TOPICAL ONCE PRN 30 Days #30 g 12/13/20 [Rx Confirmed 05/03/21] ondansetron 8 mg disintegrating tablet 8 mg PO Q8H PRN #30 tab 12/13/20 [Rx Confirmed 05/03/21] prochlorperazine maleate 10 mg tablet 10 mg PO Q6H PRN #30 tab 12/13/20 [Rx Confirmed 05/03/21] omeprazole magnesium 20 mg tablet,delayed release 20 mg PO DAILY #30 tab 02/11/21 [Rx Confirmed 05/03/21] potassium chloride 20 mEq tablet,extended release 20 meq PO BID #60 tab 04/08/21 [Rx Confirmed 05/03/21] Is last menstrual period known: No Post menopausal: Yes Patient : No PFSH Medical History Acid reflux Arthritis Cancer CINV (chemotherapy-induced nausea and vomiting) Dehydration Diarrhea due to drug Dietary restriction Encounter for education Former smoker High cholesterol History of echocardiogram HTN (hypertension) Hyperlipidemia Hypokalemia Injury of head and neck Kidney stone Near syncope Osteoarthritis Port-A-Cath in place Port-A-Cath in place Psoriasis Rash Rib injury Surgical History History of cholecystectomy (~1984) History of colonoscopy (~08/2008) History of esophagogastroduodenoscopy (EGD) History of thyroid surgery (~1973) Family History Sister Heart disease Thyroid disorder Breast cancer COPD (chronic obstructive pulmonary disease) Myocardial infarction Aunt Breast cancer Unknown Breast cancer Other Invasive ductal carcinoma of left breast Social History Smoking Status: Former smoker HPI HPI HPI: ABAD LOVE, is a 65 F who presents to the office today for discussion of surgical treatment for breast cancer. Patient did just finished neoadjuvant therapy 2 weeks ago. Repeat breast MRI shows resolution of previous left breast mass/left lymph node. Patient is ER/RI negative, HER-2 positive. She is biopsy of the left breast mass/possible lymph node did not show any lymphoid tissue at the time of biopsy. ROS General General: Yes breast cancer; No weight change or fatigue Breast Breast: No left breast lump, right breast lump, nipple discharge, breast pain, abnormal mammogram or breast enlargement Cardio Cardiovascular: No chest pain Resp Respiratory: No shortness of breath Gastro Gastrointestinal: No abdominal pain, No nausea or vomiting, No diarrhea, No constipation, No blood in stool, No acid reflux, No hemorrhoids, No ulcers, No gallbladder problem and No black,tarry stools Exam Const General: cooperative, healthy appearing, comfortable and no acute distress [facility] Head: normocephalic and atraumatic Neck Neck: normal visual inspection Chest Breast inspection: normal inspection of the breasts Breast Palpation: Yes normal palpation of the breasts, No no axillary lymphadenopathy, No breast mass, No nipple discharge, No supraclavicular and No change in skin Other: unable to identify the clip with bedside ultrasound Resp Effort & Inspection: normal respiratory effort Cardio Rate: regular rate GI Inspection: non-distended Palpation: soft, no guarding and nontender Skin General: no rashes or lesions noted Neuro General: patient oriented x3 Extrem General: no clubbing, cyanosis or edema Psych Affect: normal affect Assessment and Plan Assessment and Plan (1) Cancer with unknown primary site: Status: Chronic Comment: Left axillary node-breast cancer, no clear primary in the breast or metastatic disease. ER/RI negative, Her2 positive. Declined clinical trial. Began neoadjuvant TCHP 12/17/2020. Finished C6 on 04/15/2021. L axillary node has decrease in size. Counts and chemistry reviewed. (2) Chemotherapy management, encounter for: Status: Acute Comment: Due for C6. Has low Plt. (3) Invasive ductal carcinoma of left breast: Status: Acute Orders: Referrals: Radiation Oncology C80.1, C50.912 Plan - Dr. Hedy Giraldo MD: Reviewed MRI and previous labs with patient and her --thrombocytopenia due to chemo. Discussed with patient that I still have some question if this is truly a lymph node as no lymphoid tissue was seen in biopsy or if it could be the primary in the axillary tail of the breast. I have given the patient options for initial surgical treatment. Options are the following: lumpectomy followed by radiation therapy vs. mastectomy vs. mastectomy followed by immediate reconstruction. I have described the procedures to the patient. I have described the advantages and disadvantages of the options, but I have told the patient that among the options, the survival rate for breast cancer is the same. Discussed with patient that we may not know for sure if the previous mass is primary or LN until surgery with frozen. If primary could do lumpectomy and sentinel LN; if LN would plan for axillary LN dissection and radiation to the breast after surgery. Due to not being able to see clip with bedside U/S, will have patient go to mammography for a trial run prior to surgery to make sure we can localize the clip as it is near chest wall/in axillary tail vs axilla. I have told the patient that with all the surgeries that a sentinel lymph node biopsy is required. I have described the procedure of sentinel lymph node biopsy to the patient. I have told the patient that if the biopsy is positive for metastatic disease, then a full axillary lymph node dissection is required. I have told the patient that adjuvant chemotherapy will be required should the lymph nodes reveal metastatic disease. Also, a full lymph node dissection will increase the risk for lymphedema, especially if there are 4 or more lymph nodes positive for metastatic disease and radiation to the axilla is also required. I have told the patient the risks of surgery, including but not limited to: infection, bleeding, scar tissue, seroma and persistent seroma, lymph leak, injury to any blood vessels, injury to any nerves (particularly the long th oracic, the thoracodorsal, and the second intercostal brachial and the resultant sequelae), lymphedema, cosmetic deformity, dysesthesias, wound infections, further surgery (especially if margins are not clear), complications of anesthesia, etc. the patient understands. The patient will think about the options and discuss it further with the family. The patient will contact me in the next few days when she decides what the patient wishes to do. Pt is leaning towards a lumpectomy and will meet with Dr. Shabazz prior to surgery. Addendum: Patient did meet with Dr. Shabazz and still planning on the lumpectomy and sentinel lymph node biopsy unless the clipped mass is identified as a lymph node and would plan for an axillary lymph node dissection. I have answered all the patient?s questions at this point to her satisfaction and she has no further questions. Coding Level of Care Code Off vis,est,level 5 Diagnoses Cancer with unknown primary site C80.1 Chemotherapy management, encounter for Z51.11 Invasive ductal carcinoma of left breast C50.912 05/05/21 1505<Electronically signed by Hedy Giraldo MD>Date Hedy Giraldo MD
[2021-05-21 09:33] LABS: Platelet Count 196 K/mm3 (150-450)
--- NOTE | 2021-05-21 10:00 | NM_ITS ---
PROCEDURE: NUCLEAR MEDICINE Injection Haskell Node - LEFT breast(s). REASON FOR EXAM: Female, 65 years old. Left breast cancer. TECHNIQUE: Haskell node localization using radionuclide methods of the LEFT breast(s) was performed following subcutaneous administration of 1.1 mCi of of sulfur colloid Tc-99m. FINDINGS: 1.1 mCi of technetium labeled sulfur colloid was injected subcutaneously in 4 equal aliquots in the left periareolar region. NM/Lymph Node Injection Only IMPRESSION: 1.1 mCi of technetium labeled sulfur colloid was injected subcutaneously in 4 equal aliquots for left sentinel node imaging. Electronically Signed: Mp Ernst MD at 10:45 EDT ,
--- NOTE | 2021-05-21 11:00 | BI_ITS ---
SURGICAL BREAST SPECIMEN RADIOGRAPH CLINICAL: Document presence of tissue clip marker in biopsy specimen. FINDINGS: Specimen shows presence of tissue clip marker. Electronically Signed: Mp Ernst MD at 14:00 EDT , BI/Breast Biopsy Specimen
[2021-05-21] MEDS: Cefazolin 2 GM in 0.9% Normal Saline 100 ML IV (12:30)
[2021-05-21] MEDS: 0.9% Normal Saline (Pres. free 10 ML Vial (12:45)
[2021-05-21] MEDS: Isosulfan Blue 1% 5 ML Vial (12:45)
--- NOTE | 2021-05-21 13:46 | PCM.OPRPT ---
Report of Operation Date of Procedure: 05/21/21 Pre-Operative Diagnosis: Left breast cancer Post-Operative Diagnosis: same Surgery/Procedure Performed:: Left stereotactic clip localization lumpectomy, sentinel lymph node biopsy with nuclear tracer and blue dye Description of Surgical Findings:: 1 sentinel node negative?blue & 10 count of 903; no obvious tumor identified at the lumpectomy just some fibrous tissue on quick look by pathology. No obvious lymphoid tissue at the clip on quick look by pathology. Surgeon: Hedy Giraldo magazine grinder loader: Jonah Bejarano Type of Anesthesia: General/Supplemental Anesthesiologist: jv Special Medications: Ancef 2 g IV x1 Specimen's removed: 1. Left sentinel lymph node, 2. Left lumpectomy Drains: None Estimated Blood Loss (mL): 10 cc Description of Procedure: Indications: 65-year-old female with invasive ductal carcinoma in the left breast/axillary tail, HER-2 positive, status post chemotherapy. Postchemotherapy MRI showed likely resolution of the previous clipped positive lesion. It is unsure if this lesion was a lymph node or possibly could be the primary in the axillary tail. As the biopsy only showed tumor. Description of procedure: This surgery was for curative intent. In radiology the breast tissue was injected with TC-9 9 sulfur colloid by the radiologist. Just prior to the OR patient was also taken to mammography and stereotactic needle localization was done of her previous clip as MRI shows a possible complete response. Patient was placed prone on the stereotactic table. The clip was localized. A Bard needle was placed at the clip. 15 degree in -15 degree view showed needle in the appropriate position. Localization studies of exaggerated cc view as well as the MLO view showed the clip was just posterior to the tip of the needle. At least 90 minutes after the nuclear injection, the patient was taken to the operating room and general anesthesia was induced. Localization studies were reviewed. 5 cc of Lymphazurin 1% blue dye was injected in the 4 quadrants periareolar along with 10 cc of normal saline. This was massaged gently for 5 minutes. The left breast and axilla were prepped and draped in usual sterile fashion. A timeout was completed verifying correct patient, procedure, site, positioning, special equipment prior to beginning procedure. Handheld gamma probe was used to identify the location of the hottest spot in the axilla. Prior to the incision, the counts were 20. The incision was made in the hot and blue node was identified. The probe was placed in contact with the node in the 10 count was 903. The bed of the node measured 4 counts. No additional blue or hot or palpable nodes were detected. Frozen showed negative sentinel node. By comparing localization studies with the direction and skin entry of the needle, the probable trajectory and location of the mass was visualized. Due to the location in the axillary tail of the axillary incision was used. Flaps were raised in the location of the wire confirmed. The wire was delivered into the wound. 2 silk hiwngs-lm-yoxyp stay suture was placed around the wire and used for traction. Dissection was then taken down circumferentially, taking care to include the entire localization needle and wide margin of grossly normal tissue. The specimen and entire localizing wire were removed. The specimen was oriented and sent to radiology with the localization studies. Confirmation was received that the entire target area with the entire wire and clip had been resected. 3 medium clips were placed at the base of the the cavity of the the clip lesion. The cavities were irrigated. Hemostasis was checked. space was closed with 2 interrupted 3-0 Vicryl sutures. The breast and axillary incisions were closed with interrupted sutures of 3-0 Vicryl and subcuticular sutures of 4-0 Monocryl and Dermabond. A dressing of fluff gauze and supportive bra placed. The patient tolerated procedure well was taken to the postanesthesia care in stable condition.
--- NOTE | 2021-05-21 13:47 | EX.PCM.DISCH ---
Discharge Instructions Diet Discharge Diet: No restrictions Activity Discharge Activity: May Not Drive (for 2-3 days or while taking narcotic pain meds.) May shower in (days): 1 Lifting Restrictions: 10 pounds for 1 week. Dressing / Incision Call your doctor if your incision/area has: Continuous Slow Oozing, Sudden Increased Bleeding, Increased Pain/ Swelling and Increased Redness Call your doctor if you observe: Fever of 101 or Higher Suture Line Care: Avoid Pulling/Pushing and Avoid Pinching/Bending Remove Dressing in: 1 day Additional Dressing/Incision Instructions:: Remove bulky dressing tomorrow. Dermabond (glue) was used at the axillary incision this may start to peel off in about 5 days. Follow Up Care Please Follow Up With: Hedy Giraldo MD When: Please call [phone] for an appointment to be seen in 2 week. Test Results: Test results from this visit will be discussed in further detail at your follow-up appointment, if applicable. Discharge Plan Admission Attending Provider: Hedy Giraldo Primary Care Provider: Wilver Etienne Instructions Additional Instructions / Restrictions: Okay to take ibuprofen 400-600 mg PO q6hr PRN along with the Percocet. Avoid Tylenol since there is already Tylenol in the Percocet. Take all pain meds with food. Percocet can cause constipation recommend taking daily stool softener (i.e. Colace/docusate) while taking the pain meds. Recommend starting some MiraLAX in 1 to 2 days if no bowel movement. If still no bowel movement the following day recommend taking magnesium citrate half the bottle and waiting 4-6 hours if still no results take the other half the bottle. Discharge Orders/Prescriptions Prescriptions: New oxycodone-acetaminophen 5-325 mg tablet 1 tab PO Q6H PRN (Reason: pain) 3 Days Qty: 7 RF: 0 Continued lisinopril-hydrochlorothiazide 20-12.5 mg tablet 1 tab PO DAILY RF: 0 cholecalciferol (vitamin D3) 25 mcg (1,000 unit) capsule 25 mcg PO DAILY RF: 0 ondansetron 8 mg tablet,disintegrating 8 mg PO Q8H PRN (Reason: nausea and vomiting) Qty: 30 RF: 2 calcium carbonate [Calcium 600] 600 mg calcium (1,500 mg) Tablet 600 mg PO DAILY RF: 0 magnesium 200 mg Tablet 300 mg PO DAILY RF: 0 omeprazole magnesium [Prilosec OTC] 20 mg tablet,delayed release (DR/EC) 20 mg PO DAILY PRN (Reason: GERD) RF: 0 Referrals / Follow Up: Wilver Etienne MD [Primary Care Provider] - Disposition Disposition (needs filled in before D/C Order can be placed): Home, Self Care
[2021-05-21] MEDS: Bupivacaine Mpf 0.5% 30 ML VIAL (13:49)
[2021-05-21] MEDS: 0.9% Saline Lock 10 ML Syringe IV (16:05)
== END 2021-05-21 23:59 | disposition home or self-care (01) ==
LOC: SDC 08:46 → AC 08:46
PROVIDERS: Surgery; PCP Family Medicine; Referring Provider Surgery; Visit Provider Surgery
PROC: 0HBV0ZZ Excision of Bilateral Breast, Open Approach (ICD-10-PCS; CPT 19302; principal; 2021-05-21 12:15)
DX: C50.912 Malignant neoplasm of unspecified site of left female breast (principal); Z80.3 Family history of malignant neoplasm of breast; I10 Essential (primary) hypertension; E78.00 Pure hypercholesterolemia, unspecified; E78.5 Hyperlipidemia, unspecified; Z87.891 Personal history of nicotine dependence; R59.0 Localized enlarged lymph nodes; K21.9 Gastro-esophageal reflux disease without esophagitis; Z87.442 Personal history of urinary calculi; L40.9 Psoriasis, unspecified; Z79.899 Other long term (current) drug therapy; E83.42 Hypomagnesemia; Z95.828 Presence of other vascular implants and grafts; Z86.2 Personal history of diseases of the blood and blood-forming organs and certain disorders involving the immune mechanism
CPT/HCPCS: 19301; 38525; 00404; 19281; 36415; 38792; 76098; 85025; 85049; 87426; 88305; 88307; 88331; 88341; 88342; A9541; C9803; A4216; J2405; J3490; Q9968

== ENCOUNTER → 2021-07-12 | Outpatient (CLI) | payer MEDICARE, SELFPAY ==
--- NOTE | 2021-07-12 13:58 | ECHOLCONC_ITS ---
Reason For Study: HIGH RISK MEDS Procedure This was a limited 2D transthoracic echocardiogram. Myocardial strain analysis was performed in this exam to aid in the assessment of cardiac function. The study was technically difficult. Contrast injection was performed. Exam performed in department. Left Ventricle Normal LV size. Left ventricular systolic function is normal. The estimated ejection fraction is 55 %. No regional wall motion abnormalities noted. Right Ventricle Normal RV size. Normal systolic function. Atria Normal left atrium. Normal right atrium. Mitral Valve Normal mitral valve. Tricuspid Valve Normal tricuspid valve. Aortic Valve Normal aortic valve. Trisinus/trileaflet aortic valve. Pulmonic Valve Normal pulmonic valve. Great Vessels Normal aortic root. The pulmonary artery is normal size. Normal inferior vena cava. Pericardium/Pleural No pericardial effusion. Medication Port access from Radiology Nurse-Monica. Diluted definity 10ml given slow IV push to enhance endocardial definition. MMode/2D Measurements & Calculations LVIDd: 3.8 cm IVSd: 1.0 cm LVIDs: 2.7 cm LVPWd: 0.94 cm FS: 29.2 % ECHO/ONC Echo Limited w/Contrast Interpretation Summary Normal LV size. Left ventricular systolic function is normal. The estimated ejection fraction is 55 %. Structurally normal valves. The global longitudinal strain is normal. The globa l longitudinal strain = -18.5 % (normal). Compared to previous study, the left ventricular systolic f unction is the same.. Ordering Physician: Ravi Casas Referring Physician: Ravi Casas Performed By: Devorah Ham RCS
[2021-07-12] MEDS: 0.9% Saline Lock 10 ML Syringe IV (15:14)
== END | disposition home or self-care (01) ==
LOC: CVS 13:56
PROVIDERS: PCP Family Medicine; Referring Provider Internal Medicine Medical Oncology; Visit Provider Internal Medicine Medical Oncology
DX: Z51.11 Encounter for antineoplastic chemotherapy (principal)
CPT/HCPCS: 93308; 93356; Q9957; A4216; C8924

== ENCOUNTER → 2021-07-19 | Outpatient (CLI) | payer MEDICARE, SELFPAY ==
--- NOTE | 2021-07-19 08:28 | NM_ITS ---
CLINICAL: Female, 66 years old. right scapular pain; left hand pain; h/o breast ca WHOLE BODY NUCLEAR BONE SCAN TECHNIQUE: Following the IV administration of 25.7 mCi of Tc MDP, whole body bone imaging was performed with a gamma camera following a three hour delay. COMPARISON STUDIES : NM - 12/06/2020 CR - Not available for review at this time. CT - Not available for review at this time. MR - Not available for review at this time. US - Not available for review at this time. FINDINGS: There is a normal concentration of radiopharmaceutical throughout the axial and appendicular skeletal system without either a focal decrease or increase in uptake. The amount of increased uptake in the anterior aspect of a lower right rib is decreased consistent with a healing rib fracture. There is a new similar areas of increased uptake within the anterior aspect of a lower left rib consistent with a new fracture. No other foci of increased uptake are identified. Normal concentration of radiopharmaceutical seen by both kidneys with excretion into the bladder. NM/Bone Scan Whole Body IMPRESSION: 1. No scintigraphic evidence of metastatic disease. 2. Improved right rib fracture. 3. New left rib fracture. Electronically Signed: Aguila Noble MD at 7:13 EDT ,
[2021-07-19] MEDS: 0.9% Saline Lock 10 ML Syringe IV (08:40)
== END | disposition home or self-care (01) ==
LOC: NM 08:27
PROVIDERS: PCP Family Medicine; Referring Provider Nurse Practitioner Family; Visit Provider Nurse Practitioner Family
DX: M89.8X1 Other specified disorders of bone, shoulder (principal); C50.912 Malignant neoplasm of unspecified site of left female breast; M79.642 Pain in left hand
CPT/HCPCS: 78306; A9503; A4216

== ENCOUNTER → 2021-10-21 | Outpatient (CLI) | payer MEDICARE, SELFPAY ==
--- NOTE | 2021-10-21 07:49 | ECHOD_ITS ---
Reason For Study: other Procedure This was a 2D Doppler, Color Flow transthoracic echocardiogram. The study was technically difficult. Contrast injection was performed. Exam performed in department. Left Ventricle Normal LV size. Left ventricular systolic function is normal. The estimated ejection fraction is 55 %. Stage 1 diastolic dysfunction. No regional wall motion abnormalities noted. Right Ventricle Normal RV size. Normal systolic function. Atria Normal left atrium. Normal right atrium. Mitral Valve Normal mitral valve. Mild (1+) eccentric mitral valve insufficiency. Tricuspid Valve Normal tricuspid valve. Mild tricuspid valve insufficiency. Pulmonary artery systolic pressure is 25 mmHg. Aortic Valve Trisinus/trileaflet aortic valve. Pulmonic Valve Normal pulmonic valve. Great Vessels Normal aortic root. The pulmonary artery is normal size. Normal inferior vena cava. Pericardium/Pleural No pericardial effusion. Medication Port accessed. Diluted definity 1ml given slow IV push to enhance endocardial definition. MMode/2D Measurements & Calculations LVIDd: 4.1 cm IVSd: 0.83 cm Ao root diam: 3.0 cm LVIDs: 2.8 cm LVPWd: 0.74 cm RVDd: 3.1 cm FS: 32.5 % LAV(MOD-sp4): 53.6 ml LVAd ap4: 30.9 cm2 SV(MOD-sp4): 54.0 ml LVLd ap4: 8.1 cm EDV(MOD-sp4): 96.1 ml EDV(sp4-el): 100.2 ml LVAs ap4: 17.8 cm2 LVLs ap4: 6.4 cm ESV(MOD-sp4): 42.1 ml ESV(sp4-el): 42.3 ml EF(MOD-sp4): 56.2 % EF(sp4-el): 57.8 % SV(sp4-el): 57.9 ml LA A4 area: 19.6 cm2 LA dimension(2D): 3.5 cm RA A4 area: 13.7 cm2 Time Measurements MV dec time: 0.19 sec Doppler Measurements & Calculations MV E max beka: 89.2 cm/sec Lat Peak E' Beka: 10.5 cm/sec MV V2 max: 101.0 cm/sec MV A max beka: 95.5 cm/sec E/E' lat: 8.5 MV max P.1 mmHg MV E/A: 0.93 MV V2 mean: 73.1 cm/sec MV mean P.3 mmHg MV V2 VTI: 27.8 cm MV dec slope: 481.7 cm/sec2 Ao V2 max: 187.3 cm/sec LV V1 max: 116.4 cm/sec Ao max P.0 mmHg LV V1 max P.4 mmHg Ao V2 mean: 133.9 cm/sec LV V1 mean P.2 mmHg Ao mean P.1 mmHg LV V1 mean: 83.9 cm/sec Ao V2 VTI: 40.4 cm LV V1 VTI: 24.7 cm MR max beka: 6.9 cm/sec PA V2 max: 125.3 cm/sec TR max beka: 236.8 cm/sec MR max P.02 mmHg TR max P.4 mmHg ECHO/ONC Echo Complete W/ Contrast Interpretation Summary Normal LV size. Left ventricular systolic function is normal. The estimated ejection fraction is 55 %. Mild tricuspid valve insufficiency. Stage 1 diastolic dysfunction. Ordering Physician: Sunitha Bethea Referring Physician: Sunitha Bethea Performed By: Devorah Ham RCS
== END | disposition home or self-care (01) ==
LOC: CVS 07:48
PROVIDERS: PCP Family Medicine; Referring Provider Nurse Practitioner Family; Visit Provider Nurse Practitioner Family
DX: Z51.11 Encounter for antineoplastic chemotherapy (principal)
CPT/HCPCS: 93306; 93356; Q9957; A4216; C8929

== ENCOUNTER → 2022-04-29 | Outpatient (CLI) | payer MEDICARE, SELFPAY ==
--- NOTE | 2022-04-29 08:53 | BI_ITS ---
MAMMOGRAPHY - BILATERAL DIAGNOSTIC REASON FOR EXAM: Female, 66 years old. Prior left lumpectomy with chemotherapy and radiation. PERTINENT HISTORY: Personal history of breast cancer. Sister with breast cancer. Aunt with breast cancer. TECHNIQUE: Digital bilateral breast lisette (3D mammographic acquisition) in the CC and MLO projections. 2-D mediolateral oblique (MLO) and craniocaudad (CC) views of both breasts were obtained. CAD: Full Field Digital Mammography with Computer Added Detection was performed. COMPARISON: Comparison is made with prior study dated November 07, 2020 and May 21, 2021. FINDINGS: Breast Composition: The breasts are heterogeneously dense, which may obscure small masses. There are no dominant masses or suspicious calcifications. Since prior study, the patient underwent excisional biopsy of a dominant left axillary lymph node. Surgical clips are seen at the biopsy site. A tissue clip marker is also seen in the retroareolar region of the left breast. No other significant abnormalities are identified. BI/DIAG MAMM W/CAD, BILAT IMPRESSION: Status post resection of the left axial lymph node as well as biopsy of the left retroareolar nodule. One year follow-up recommended. (A) ASSESSMENT CATEGORY: BIRADS Category 2: Benign. A letter regarding these results will be sent to the patient by the facility within 30 days. Approximately 10% of breast cancers are not detected by mammography. A normal mammogram should not delay biopsy of a clinically suspicious abnormality. Electronically Signed: Mp Ernst MD at 10:13 EDT ,
== END | disposition home or self-care (01) ==
PROVIDERS: PCP Family Medicine; Visit Provider Student in an Organized Health Care Education/Training Program
DX: C80.1 Malignant (primary) neoplasm, unspecified (principal); Z12.31 Encounter for screening mammogram for malignant neoplasm of breast
CPT/HCPCS: 77062; 77066; G0279

== ENCOUNTER → 2022-05-12 | Outpatient (CLI) | payer MEDICARE, SELFPAY ==
--- NOTE | 2022-05-12 07:59 | ECHOLCONC_ITS ---
Reason For Study: OTHER Procedure This was a limited 2D transthoracic echocardiogram. The study was technically difficult. Contrast injection was performed. Exam performed in department. Left Ventricle Normal LV size. The estimated ejection fraction is 55-60 %. Unable to assess diastolic dysfunction. No regional wall motion abnormalities noted. Right Ventricle Normal RV size. Normal systolic function. Atria Normal left atrium. Normal right atrium. No doppler evidence for ASD. Mitral Valve There is no mitral valve stenosis. not assessed. Tricuspid Valve There is no tricuspid stenosis. not assessed. Aortic Valve The aortic valve is not well visualized. Pulmonic Valve The pulmonic valve is not well visualized. Medication Port accessed by wood and wood products labourer RN. Diluted definity 2ml given slow IV push to enhance endocardial definition. MMode/2D Measurements & Calculations LVIDd: 4.2 cm IVSd: 0.91 cm Ao root diam: 2.7 cm LVIDs: 2.7 cm LVPWd: 1.1 cm FS: 35.4 % LAV(MOD-bp): 22.3 ml LA A4 area: 9.5 cm2 LA dimension(2D): 3.2 cm LAV(MOD-bp) Indexed: 12.5 ml/m2 LAV(MOD-sp2): 25.9 ml LAV(MOD-sp4): 17.4 ml RA A4 area: 7.8 cm2 ECHO/ONC Echo Limited w/Contrast Interpretation Summary The estimated ejection fraction is 55-60 %. Unable to assess diastolic dysfunction. Ordering Physician: Ravi Casas Referring Physician: Wilver Etienne Performed By: Devorah Ham RCS
== END | disposition home or self-care (01) ==
PROVIDERS: PCP Family Medicine; Visit Provider Internal Medicine Medical Oncology
DX: R06.02 Shortness of breath (principal)
CPT/HCPCS: 93308; 93356; Q9957; A4216; C8924

== ENCOUNTER 2022-06-26 14:58 | Outpatient (CLI) | payer MEDICARE, SELFPAY ==
--- NOTE | 2022-06-26 15:13 | VDUE_ITS ---
Reason For Study: Right arm swelling Right Proximal Left Proximal Right jugular vein is spontaneous, widely Left subclavian vein is spontaneous, widely patent, phasic, with no intraluminal patent, phasic, with no intraluminal echogenicity noted. echogenicity noted. Right subclavian vein is spontaneous, widely patent, phasic, with no intraluminal echogenicity noted. Right Lower Arm Right radial vein is compressible. Right ulnar vein is compressible. Right Arm Right axillary vein is spontaneous, patent, phasic, competent, compressible and demonstrates augmentation. Right brachial vein is compressible. Right cephalic vein is compressible. Right basilic vein is compressible. Patient Safety Preliminary report sent to [facility]. VL/Venous Duplex US, Unilateral Interpretation Summary Deep veins of the right upper extremity are patent and compressible segmentally . There is no evidence of deep vein thrombosis. Superficial veins of the right upper extremity are patent and compressible segm entally. There is no evidence of superficial vein thrombosis. Ordering Physician: Rebecca Urbina Referring Physician: Wilver Etienne Performed By: Lindsey Sawyer RVT ???
== END 2022-06-26 23:59 | disposition home or self-care (01) ==
PROVIDERS: PCP Family Medicine; Referring Provider Nurse Practitioner Family; Visit Provider Nurse Practitioner Family
DX: R22.1 Localized swelling, mass and lump, neck (principal); R00.0 Tachycardia, unspecified
CPT/HCPCS: 36415; 80048; 93971

== ENCOUNTER → 2022-06-26 | Outpatient (CLI) | payer MEDICARE, SELFPAY ==
[2022-06-26 19:16] LABS: Anion Gap 9 (5-15); BUN 23 mg/dL (7-18); Calcium,Total 9.4 mg/dL (8.5-10.1); Chloride 107 mmol/L (98-107); Creatinine, Serum 0.88 mg/dL (0.55-1.02); EST Glomerular Filtration Rate 68 mL/min (>60); Est Glom Filt Rate - Afr Amer 82 mL/min (>60); Glucose 122 mg/dL (74-106); Potassium 3.9 mmol/L (3.5-5.1); Sodium Level 140 mmol/L (136-145)
== END | disposition home or self-care (01) ==
LOC: MFPLAB 14:39
PROVIDERS: PCP Family Medicine; Visit Provider Nurse Practitioner Family
DX: R00.0 Tachycardia, unspecified (principal)
CPT/HCPCS: 36415; 80048

== ENCOUNTER → 2022-11-11 | Outpatient (CLI) | payer MEDICARE, SELFPAY ==
--- NOTE | 2022-11-11 10:55 | ECHOLCONC_ITS ---
Reason For Study: OTHER Procedure This was a limited 2D transthoracic echocardiogram. The study was technically difficult. Contrast injection was performed. Exam performed in department. Left Ventricle Normal LV size. Left ventricular systolic function is normal. The estimated ejection fraction is 60 %. No regional wall motion abnormalities noted. Right Ventricle Normal RV size. Normal systolic function. Atria Normal left atrium. Normal right atrium. Mitral Valve Normal mitral valve. Tricuspid Valve Normal tricuspid valve. Aortic Valve Normal aortic valve. Pulmonic Valve Normal pulmonic valve. Great Vessels Normal aortic root. The pulmonary artery is normal size. Normal inferior vena cava. Pericardium/Pleural No pericardial effusion. Medication 22 gauge I.V. with prn adaptor inserted into right arm. Diluted definity 3ml given slow IV push to enhance endocardial definition. MMode/2D Measurements & Calculations LVIDd: 3.3 cm IVSd: 1.2 cm Ao root diam: 2.9 cm LVIDs: 2.5 cm LVPWd: 1.1 cm FS: 24.3 % LAV(MOD-sp2): 30.8 ml LVAd ap4: 29.3 cm2 SV(MOD-sp4): 61.5 ml LVLd ap4: 7.6 cm EDV(MOD-sp4): 93.0 ml EDV(sp4-el): 95.7 ml LVAs ap4: 15.3 cm2 LVLs ap4: 6.1 cm ESV(MOD-sp4): 31.5 ml ESV(sp4-el): 32.6 ml EF(MOD-sp4): 66.2 % EF(sp4-el): 65.9 % SV(sp4-el): 63.1 ml LA dimension(2D): 3.1 cm ECHO/ONC Echo Limited w/Contrast Interpretation Summary Normal LV size. Left ventricular systolic function is normal. The estimated ejection fraction is 60 %. Contrast injection was performed. Ordering Physician: Ravi Casas Referring Physician: Ravi Casas Performed By: Devorah Ham RCS
== END | disposition home or self-care (01) ==
LOC: CVS 10:54
PROVIDERS: PCP Family Medicine; Referring Provider Internal Medicine Medical Oncology; Visit Provider Internal Medicine Medical Oncology
DX: Z51.11 Encounter for antineoplastic chemotherapy (principal)
CPT/HCPCS: 93308; 93356; Q9957; A4216; C8924

== ENCOUNTER → 2023-05-01 | Outpatient (CLI) | payer MEDICARE, SELFPAY ==
--- NOTE | 2023-05-01 08:20 | BI_ITS ---
MAMMOGRAPHY - BILATERAL SCREENING REASON FOR EXAM: Female, 67 years old. Routine annual screening examination. PERTINENT HISTORY: Personal history of breast cancer. Prior left lumpectomy with chemotherapy and radiation therapy. Sister with breast cancer. Aunt with breast cancer. TECHNIQUE: Digital bilateral breast otf (3D mammographic acquisition) in the CC and MLO projections. 2-D mediolateral oblique (MLO) and craniocaudad (CC) views of both breasts were obtained. CAD: Full Field Digital Mammography with Computer Added Detection was performed. COMPARISON: Comparison is made with prior study of November 07, 2020 and April 29, 2022. FINDINGS: Breast Composition: The breasts are heterogeneously dense, which may obscure small masses. There are no dominant masses or suspicious calcifications. Surgical clips are once again seen in the left axillary region as well as in the retroareolar region of the left breast. No other significant abnormalities are identified. There has been no significant change since the prior study. BI/SCRN MAMM (CAD)W/OTF BILAT IMPRESSION: Stable bilateral screening mammogram. Yearly follow-up mammogram recommended. (A) ASSESSMENT CATEGORY: BIRADS Category 2: Benign. A letter regarding these results will be sent to the patient by the facility within 30 days. Approximately 10% of breast cancers are not detected by mammography. A normal mammogram should not delay biopsy of a clinically suspicious abnormality. [id number] Electronically Signed: Mp Ernst MD at 10:04 EDT ,
--- NOTE | 2023-05-01 08:20 | ECHOLCONC_ITS ---
Reason For Study: Hx of High Risk Meds Procedure This was a limited 2D transthoracic echocardiogram. Myocardial strain analysis was performed in this exam to aid in the assessment of cardiac function. Contrast injection was performed. Exam performed in department. Left Ventricle Normal LV size. Left ventricular systolic function is normal. The estimated ejection fraction is 60 %. No regional wall motion abnormalities noted. Right Ventricle Normal RV size. Normal systolic function. Atria Normal left atrium. Normal right atrium. Mitral Valve Normal mitral valve. Tricuspid Valve Normal tricuspid valve. Aortic Valve Trisinus/trileaflet aortic valve. Mobile filamentous structure noted on the aortic side of the aortic valve. This appears to be new in comparison to the previous echo from November 2022. Pulmonic Valve The pulmonic valve is not well visualized. Great Vessels Normal aortic root. Pericardium/Pleural No pericardial effusion. Medication Diluted definity 3ml given slow IV push to enhance endocardial definition. MMode/2D Measurements & Calculations LVIDd: 3.6 cm IVSd: 0.82 cm LVIDs: 2.2 cm LVPWd: 0.97 cm LVAd ap4: 19.2 cm2 FS: 38.2 % LVLd ap4: 6.9 cm EDV(MOD-sp4): 43.6 ml EDV(sp4-el): 45.8 ml LVAs ap4: 10.4 cm2 LVLs ap4: 5.5 cm ESV(MOD-sp4): 17.3 ml ESV(sp4-el): 16.9 ml EF(MOD-sp4): 60.3 % EF(sp4-el): 63.2 % SV(MOD-sp4): 26.3 ml SV(sp4-el): 29.0 ml Doppler Measurements & Calculations TR max carlos: 238.7 cm/sec TR max P.8 mmHg ECHO/ONC Echo Limited w/Contrast Interpretation Summary Normal LV size. Left ventricular systolic function is normal. The estimated ejection fraction is 60 %. Mobile filamentous structure noted on the aortic side of the aortic valve. This appears to be new in comparison to the previous echo from November 2022. The global longitudinal strain is normal. The global longitudinal strain = -17. 9 % (normal). Ordering Physician: Ravi Casas Referring Physician: Ravi Casas Performed By: Debby Thomson, MARCOS, RVT
== END | disposition home or self-care (01) ==
PROVIDERS: PCP Family Medicine; Referring Provider Internal Medicine Medical Oncology; Visit Provider Internal Medicine Medical Oncology
DX: Z12.31 Encounter for screening mammogram for malignant neoplasm of breast (principal); Z85.3 Personal history of malignant neoplasm of breast; Z80.3 Family history of malignant neoplasm of breast; Z92.21 Personal history of antineoplastic chemotherapy; Z51.81 Encounter for therapeutic drug level monitoring; Z79.899 Other long term (current) drug therapy
CPT/HCPCS: 77063; 77067; 93308; 93356; Q9957; A4216; C8924

== ENCOUNTER → 2023-11-18 | Outpatient (CLI) | payer MEDICARE, SELFPAY ==
--- NOTE | 2023-11-18 07:46 | ECHOCS_ITS ---
Reason For Study: CHEMOTHERAPY Procedure This was a 2D Doppler, Color Flow transthoracic echocardiogram. The study was technically difficult. Contrast injection was performed. Exam performed in department. Left Ventricle Normal LV size. Left ventricular systolic function is normal. The left ventricular ejection fraction is 60 %. Stage 1 diastolic dysfunction. No regional wall motion abnormalities noted. Right Ventricle Normal RV size. Normal systolic function. Atria Normal left atrium. Normal right atrium. Mitral Valve Normal mitral valve. Tricuspid Valve Normal tricuspid valve. Mild tricuspid valve insufficiency. Pulmonary artery systolic pressure is 20 mmHg. Aortic Valve Normal aortic valve. Pulmonic Valve Normal pulmonic valve. Great Vessels Normal aortic root. The pulmonary artery is normal size. Normal inferior vena cava. Pericardium/Pleural No pericardial effusion. Medication 22 gauge I.V. with prn adaptor inserted into left arm. Diluted definity 2ml given slow IV push to enhance endocardial definition. MMode/2D Measurements & Calculations LVIDd: 3.5 cm IVSd: 1.1 cm LVOT diam: 1.9 cm LVIDs: 2.3 cm LVPWd: 0.94 cm RVDd: 2.7 cm FS: 34.8 % LVOT area: 2.8 cm2 asc Aorta Diam: 2.8 cm LAV(MOD-bp): 29.3 ml LVAd ap4: 24.1 cm2 LAV(MOD-bp) Indexed: 16.0 ml/m2 LVLd ap4: 7.4 cm LAV(MOD-sp2): 34.4 ml EDV(MOD-sp4): 65.5 ml LAV(MOD-sp4): 24.4 ml EDV(sp4-el): 66.8 ml LVAs ap4: 14.1 cm2 LVLs ap4: 5.6 cm ESV(MOD-sp4): 29.5 ml ESV(sp4-el): 30.0 ml EF(MOD-sp4): 54.9 % EF(sp4-el): 55.1 % LVAd ap2: 24.5 cm2 SV(MOD-sp4): 35.9 ml SV(MOD-sp2): 41.9 ml LVLd ap2: 7.1 cm EDV(MOD-sp2): 71.5 ml EDV(sp2-el): 71.8 ml LVAs ap2: 13.9 cm2 LVLs ap2: 5.5 cm ESV(MOD-sp2): 29.6 ml ESV(sp2-el): 29.9 ml EF(MOD-sp2): 58.6 % SV(sp4-el): 36.8 ml Ao sinus diam: 2.[address] Junction: 2.3 cm LA dimension(2D): 3.3 cm LA A4 area: 11.5 cm2 RA A4 area: 8.8 cm2 TAPSE: 1.6 cm Time Measurements MV dec time: 0.18 sec Doppler Measurements & Calculations MV E max beka: 76.3 cm/sec Lat Peak E' Beka: 9.8 cm/sec Med Peak E' Beka: 8.1 cm/sec MV A max beka: 102.2 cm/sec E/E' lat: 7.8 E/E' med: 9.4 MV E/A: 0.75 MV dec slope: 423.0 cm/sec2 Ao V2 max: 166.5 cm/sec LV V1 max: 122.1 cm/sec Ao max P.1 mmHg LV V1 max P.0 mmHg Ao V2 mean: 116.2 cm/sec LV V1 mean P.8 mmHg Ao mean P.2 mmHg LV V1 mean: 91.8 cm/sec Ao V2 VTI: 31.5 cm LV V1 VTI: 25.2 cm AV (velocity ratio): 0.80 JHONATAN(I,D): 2.2 cm2 JHONATAN(V,D): 2.0 cm2 SV(LVOT): 69.3 ml PA V2 max: 85.1 cm/sec TR max beka: 205.5 cm/sec PA max PG (full): 0.13 mmHg TR max P.9 mmHg ECHO/Echo Complete W/ Contrast Interpretation Summary Normal LV size. Left ventricular systolic function is normal. The left ventricular ejection fraction is 60 %. Stage 1 diastolic dysfunction. Contrast injection was performed. Ordering Physician: Ravi Casas Referring Physician: Wilver Etienne Performed By: Alva Manzano RDCS
== END | disposition home or self-care (01) ==
LOC: CVS 07:45
PROVIDERS: PCP Family Medicine; Referring Provider Internal Medicine Medical Oncology; Visit Provider Internal Medicine Medical Oncology
DX: Z51.81 Encounter for therapeutic drug level monitoring (principal); Z79.899 Other long term (current) drug therapy
CPT/HCPCS: 93306; Q9957; A4216; C8929

== ENCOUNTER → 2024-04-07 | Outpatient (CLI) | payer MEDICARE, SELFPAY ==
--- NOTE | 2024-04-07 07:45 | BD_ITS ---
PROCEDURE: DEXA BONE DENSITY STUDY REASON FOR EXAM: F, age 68 y/o . Postmenopausal. TECHNIQUE: DEXA scan of the lumbar spine and both hips. COMPARISON: None. FINDINGS: Lumbar Spine (L1-L4): g/cm2 (1.120)/T-score (0.7)/Z-score (2.7) findings are suggestive of normal with a low fracture risk. Left Femur Total: g/cm2 (0.901)/T-score (-0.3)/Z-score (1.1) Left Femoral Neck: g/cm2 (0.768)/T-score (-0.7)/Z-score (1.0) Right Femur Total: g/cm2 (1.000)/T-score (0.5)/Z-score (1.9) Right Femoral Neck: g/cm2 (0.816)/T-score (-0.3)/Z-score (1.4) BD/Dexa Bone Density Study IMPRESSION: The patient is considered normal as outlined below according to [employer] anization (WHO) criteria with a low fracture risk. Reading Location: [id number]
== END | disposition home or self-care (01) ==
LOC: OPBD 07:44
PROVIDERS: PCP Family Medicine
DX: Z13.820 Encounter for screening for osteoporosis (principal); Z78.0 Asymptomatic menopausal state
CPT/HCPCS: 77080

== ENCOUNTER → 2024-04-15 | Outpatient (CLI) | payer MEDICARE, SELFPAY ==
[2024-04-15 10:59] LABS: Hemoglobin A1c 6.3 % (<=5.6)
[2024-04-15 11:25] LABS: Cholesterol 229 mg/dL (<=200); High Density Lipoprotein 53 mg/dL; Low Density Lipoprotein Calc. 145 mg/dL; Triglycerides 155 mg/dL; Very Low Density Lipoprotein 31 mg/dL (5-40); cholesterol:hdl ratio screen 4.29
== END | disposition home or self-care (01) ==
LOC: MFPLAB 08:06
PROVIDERS: PCP Family Medicine
DX: Z13.1 Encounter for screening for diabetes mellitus (principal); Z13.220 Encounter for screening for lipoid disorders
CPT/HCPCS: 36415; 80061; 83036

== ENCOUNTER → 2024-05-02 | Outpatient (CLI) | payer MEDICARE, SELFPAY ==
--- NOTE | 2024-05-02 07:15 | BI_ITS ---
EXAM: SCRN MAMM (CAD)W/OTF BILAT 05/02/2024 CLINICAL HISTORY: F, Age 68 y/o , H/O BREAST CANCER, ANNUAL SCREENING TECHNIQUE: Bilateral Diagnostic digital breast tomosynthesis with 2D and 3D images. Computer aided detection. COMPARISON: Prior exam(s) dated 05/01/2023 and 04/29/2022. FINDINGS: TISSUE DENSITY: The breast tissue is composed of scattered area of fibroglandular density. Bilateral Breast Mammographic Findings: Benign-appearing round microcalcifications are seen in the right breast. No suspicious masses, suspicious clustered microcalcifications, architectural distortion or secondary sign of malignancy is identified in the right breast. A stable benign-appearing intramammary lymph node measuring 5 mm in the superior, far posterior aspect is noted. Architectural distortion and increased density is seen in the superior outer aspect of the left breast which does correspond to the post lumpectomy site. Surgical clips are seen. Benign round microcalcifications are seen in the left breast. A benign macrocalcification is seen. A radiopaque clip is seen in the breast. The post biopsy site is stable. There is no mammographic abnormality identified in the left breast to suggest new or recurrent malignancy. A benign-appearing macrocalcification is seen in the left breast. Surgical clips are seen in the axillary region. BI/SCRN MAMM (CAD)W/OTF BILAT IMPRESSION: Right Breast: BIRADS 2 BENIGN FINDING. Left Breast: BIRADS 2 BENIGN FINDING. OVERALL FINAL ASSESSMENT: BIRADS 2 BENIGN FINDING. RECOMMENDATION: Routine annual follow-up in 1 Year A letter with findings and recommendations will be mailed to the patient. Reading Location: [id number]
== END | disposition home or self-care (01) ==
LOC: OPBI 07:02
PROVIDERS: PCP Family Medicine; Referring Provider Student in an Organized Health Care Education/Training Program; Visit Provider Student in an Organized Health Care Education/Training Program
DX: Z12.31 Encounter for screening mammogram for malignant neoplasm of breast (principal)
CPT/HCPCS: 77063; 77067

== ENCOUNTER → 2024-11-21 | Outpatient (CLI) | payer MEDICARE, SELFPAY ==
--- NOTE | 2024-11-21 09:45 | ECHOCSONC_ITS ---
Reason For Study Reason For Study: CHEMOTHERAPY Procedure This was a 2D Doppler, Color Flow transthoracic echocardiogram. The study was technically difficult. Contrast injection was performed. Exam performed in department. Left Ventricle Normal LV size. The left ventricular ejection fraction is 60 %. Stage 1 diastolic dysfunction. No regional wall motion abnormalities noted. Right Ventricle Normal RV size. Normal systolic function. Atria Normal left atrium. Normal right atrium. Mitral Valve Normal mitral valve. Tricuspid Valve Normal tricuspid valve. Mild (1+) tricuspid valve insufficiency. Pulmonary artery systolic pressure is 20 mmHg. Aortic Valve Trisinus/trileaflet aortic valve. Pulmonic Valve Normal pulmonic valve. Great Vessels Normal aortic root. The pulmonary artery is normal size. Inferior vena cava collapse with respiration. Pericardium/Pleural No pericardial effusion. Medication 22 gauge I.V. with prn adaptor inserted into left arm. Diluted definity 2ml given slow IV push to enhance endocardial definition. MMode/2D Measurements & Calculations LVIDd: 3.7 cm IVSd: 0.98 cm LVOT diam: 1.9 cm LVIDs: 2.4 cm LVPWd: 0.93 cm RVDd: 3.1 cm FS: 35.6 % LVOT area: 2.7 cm2 asc Aorta Diam: 3.2 cm LAV(MOD-bp): 25.2 ml LVAd ap4: 21.6 cm2 LAV(MOD-bp) Indexed: 14.4 ml/m2 LVLd ap4: 7.2 cm LAV(MOD-sp2): 27.7 ml EDV(MOD-sp4): 51.6 ml LAV(MOD-sp4): 22.0 ml EDV(sp4-el): 55.4 ml LVAs ap4: 12.7 cm2 LVLs ap4: 5.8 cm ESV(MOD-sp4): 23.0 ml ESV(sp4-el): 23.6 ml EF(MOD-sp4): 55.5 % EF(sp4-el): 57.4 % LVAd ap2: 24.3 cm2 SV(MOD-sp4): 28.6 ml SV(MOD-sp2): 35.8 ml LVLd ap2: 7.1 cm SI(MOD-sp4): 16.4 ml/m2 SI(MOD-sp2): 20.4 ml/m2 EDV(MOD-sp2): 67.8 ml EDV(sp2-el): 70.0 ml LVAs ap2: 15.4 cm2 LVLs ap2: 6.1 cm ESV(MOD-sp2): 32.0 ml ESV(sp2-el): 33.0 ml EF(MOD-sp2): 52.8 % SV(sp4-el): 31.8 ml Ao sinus diam: 2.8 cm LA A4 area: 10.5 cm2 LA dimension(2D): 3.3 cm RA A4 area: 8.5 cm2 TAPSE: 1.6 cm Time Measurements MV dec time: 0.17 sec Doppler Measurements & Calculations MV E max beka: 75.2 cm/sec Lat Peak E' Beka: 9.7 cm/sec Med Peak E' Beka: 10.7 cm/sec MV A max beka: 119.0 cm/sec E/E' lat: 7.8 E/E' med: 7.0 MV E/A: 0.63 Ao V2 max: 171.7 cm/sec LV V1 max: 117.2 cm/sec MV dec slope: 438.0 cm/sec2 Ao max P.8 mmHg LV V1 max P.5 mmHg Ao V2 mean: 118.8 cm/sec LV V1 mean P.1 mmHg Ao mean P.4 mmHg LV V1 mean: 82.0 cm/sec Ao V2 VTI: 33.9 cm LV V1 VTI: 22.2 cm AV (velocity ratio): 0.66 JHONATAN(I,D): 1.8 cm2 JHONATAN(V,D): 1.9 cm2 SV(LVOT): 60.5 ml PA V2 max: 113.5 cm/sec TR max beka: 207.8 cm/sec TR max P.3 mmHg ECHO/ONC Echo Complete W/ Contrast Interpretation Summary The left ventricular ejection fraction is 60 %. Normal LV size. Stage 1 diastolic dysfunction. Pulmonary artery systolic pressure is 20 mmHg. Contrast injection was performed. Ordering Physician: Ravi Casas Referring Physician: Wilver Etienne Performed By: Alva Manzano RDCS
== END | disposition home or self-care (01) ==
LOC: CVS 09:44
PROVIDERS: PCP Family Medicine; Referring Provider Internal Medicine Medical Oncology; Visit Provider Internal Medicine Medical Oncology
DX: R93.1 Abnormal findings on diagnostic imaging of heart and coronary circulation (principal); Z79.899 Other long term (current) drug therapy
CPT/HCPCS: 93306; 93356; Q9957; A4216; C8929

== ENCOUNTER 2024-12-05 10:57 | Emergency (ER) | payer MEDICARE, SELFPAY ==
[2024-12-05 11:00] VITALS: BP 165/94; PULSE 115; RESP 16; TEMP 36.4; O2SAT 99; BMI 33.8
[2024-12-05 11:02] VITALS: BP 146/88; PULSE 102; RESP 16; TEMP 36.6; O2SAT 96
--- NOTE | 2024-12-05 11:58 | RAD_ITS ---
PROCEDURE: HAND MIN 3 VIEWS 12/05/2024 REASON FOR EXAM: R/O FOREIGN BODY, LACERATION TECHNIQUE: Procedure Code: NATALIA Modality: DX Procedure: HAND MIN 3 VIEWS Laterality: Left hand COMPARISON: None FINDINGS: Bones: No fracture is seen. Joints: Normal alignment. Soft tissues: Soft tissues are unremarkable. No radiopaque foreign body is seen. Other: RAD/Hand Min 3 Views IMPRESSION: NEGATIVE HAND SERIES No radiopaque foreign body is seen. Reading Location: [id number]
[2024-12-05] MEDS: Lidocaine 1% (20 ml mdv) 20 ML Vial 10 ML INFILT (13:06)
--- NOTE | 2024-12-05 14:36 | EX.ED.GENINJ ---
HPI History of Present Illness Chief Complaint: Laceration Narrative Narrative: 69-year-old female presents emergency department for complaint of finger laceration. Patient states that she was using hedge tremors to trim some bushes and do yard work outside and it caught the anterior side of her index finger. Patient states that she has not any blood thinners as well as getting the bleeding to stop with direct pressure but the clot looked pretty deep. States that she is not up-to-date on her tetanus. Tetanus Immunization: >10 years [facility] Medical History Elevated hemoglobin A1c Encounter for monitoring cardiotoxic drug therapy Pain in left hand Pain of right scapula Wears glasses Gastric reflux Shortness of breath on exertion Near syncope Rash Acid reflux Diarrhea due to drug Dehydration Hypokalemia Port-A-Cath in place Encounter for education CINV (chemotherapy-induced nausea and vomiting) Port-A-Cath in place Rib injury Cancer Psoriasis Arthritis Kidney stone High cholesterol Injury of head and neck Dietary restriction Former smoker History of echocardiogram Osteoarthritis HTN (hypertension) Hyperlipidemia Home Medications ?Medication ?Instructions ?Recorded ?Last Taken ?Type cholecalciferol (vitamin D3) 25 25 mcg PO DAILY 04/17/20 Unknown History mcg (1,000 unit) capsule lisinopril 20 1 tab PO DAILY 04/17/20 Unknown History mg-hydrochlorothiazide 12.5 mg tablet calcium carbonate (Calcium 600) 600 mg PO DAILY 12/11/20 Unknown History magnesium 200 mg tablet 300 mg PO DAILY 12/11/20 Unknown History omeprazole magnesium 20 mg 20 mg PO DAILY PRN GERD 05/15/21 Unknown History tablet,delayed release (Prilosec OTC) aspirin 81 mg tablet,delayed 81 mg PO DAILY 09/01/22 Unknown History release (Adult Aspirin Regimen) metformin 500 mg tablet 500 mg PO QDAY 11/07/24 Unknown History Allergy/AdvReac Type Severity Reaction Status Date / Time Sulfa (Sulfonamide Allergy Intermediate hives, Verified 12/05/24 11:03 Antibiotics) mental status change Family History Sister Heart disease Thyroid disorder Breast cancer COPD (chronic obstructive pulmonary disease) Myocardial infarction Aunt Breast cancer Unknown Breast cancer Other Invasive ductal carcinoma of left breast Surgical History S/P lumpectomy of breast History of esophagogastroduodenoscopy (EGD) History of thyroid surgery (~1973) History of colonoscopy (~08/2008) History of cholecystectomy (~1984) Social History Smoking Status: Former smoker EXAM Physical Exam Const Vital Signs: 12/05/24 11:00 12/05/24 11:02 12/05/24 14:40 Temperature 97.6 F L 98 F 98.6 F Temperature Source Temporal Oral Pulse Rate 115 H 102 H 84 Respiratory Rate 16 16 18 Blood Pressure 165/94 H 146/88 H 140/70 H Blood Pressure Mean 117 107 93 Pulse Ox 99 96 99 Oxygen Delivery Method Room Air Room Air Constitutional Narrative: Well-appearing, in no acute distress Resp normal respiratory effort Cardio regular rate Extremity Extremity Narrative: 2 cm left anterior index finger laceration with fat exposure. No pulsatile artery involvement with passive bleeding. No ligament involvement moving all nerves appropriately with good range of motion. Neurovascularly intact 2+ radial pulses bilateral PROC Procedures Lacerations Left index finger laceration: Length: 0.79 in Depth: Skin Shape: Linear Prep: Sterile Conditions and Chlorhexadine Laceration repair: Lidocaine and Skin sutures Irrigated (ml): 200 Number of Sutures/Noe: 5 Suture Information: Ethilon, Simple and 4-0 MDM MDM MDM Narrative Medical decision making narrative: 69-year-old female presents emergency department for complaint of finger laceration. Patient states that she was using hedge tremors to trim some bushes and do yard work outside and it caught the anterior side of her index finger. Patient states that she has not any blood thinners as well as getting the bleeding to stop with direct pressure but the clot looked pretty deep. States that she is not up-to-date on her tetanus. On physical exam patient has approximately 2 cm laceration to the anterior left index finger. No ligament involvement or arterial involvement. Passive oozing of blood. Full range of motion of extremity with neurovascular intact. full extent of laceration was visualized and thoroughly cleaned with saline. X-ray of the hand showing no evidence of foreign bodies. 5 sutures of 4-0 ethylene sutured with tamponade of bleeding and closure of wound. Neurovascular intact pre and post laceration repair. Full range of motion. We had patient tetanus vaccine given. Agreeable for discharge return cautions given.18-year-old male presenting to emergency department for complaint of headache. Patient states that over the past week he has been having cough congestion and upper respiratory symptoms. Patient states that he had cough and vomiting the first 2 days which have subsided and now just generally feeling ill. Patient states that he had some weakness couple days ago with soreness all over his body. Denies any vision changes, weakness, numbness, vision changes. Denies any sudden onset. Has been taking Tylenol at home. Patient states headache is diffuse. Radiography Diagnostic Testing: Clinical Impression(s) from Imaging Studies Hand X-Ray 12/05/24 11:58 IMPRESSION: NEGATIVE HAND SERIES No radiopaque foreign body is seen. Reading Location: [facility] X-ray of left hand negative for any foreign body fracture or dislocation Discharge Plan Triage Chief Complaint: Laceration ED Provider: Birdie Schreiber Dx/Rx/DC Orders Clinical Impression: Accidental laceration Prescriptions: No Action lisinopril-hydrochlorothiazide 20-12.5 mg tablet 1 tab PO DAILY cholecalciferol (vitamin D3) 25 mcg (1,000 unit) capsule 25 mcg PO DAILY aspirin [Adult Aspirin Regimen] 81 mg tablet,delayed release (DR/EC) 81 mg PO DAILY metformin 500 mg tablet 500 mg PO QDAY calcium carbonate [Calcium 600] 600 mg calcium (1,500 mg) Tablet 600 mg PO DAILY magnesium 200 mg Tablet 300 mg PO DAILY omeprazole magnesium [Prilosec OTC] 20 mg tablet,delayed release (DR/EC) 20 mg PO DAILY PRN (Reason: GERD) Primary Care Provider: Wilver Etienne Referrals: Wilver Etienne MD [Primary Care Provider, Family Practice] Activity Restrictions/Additional Instructions: Follow-up with your PCP in the next 5 to 7 days for suture removal. Return if any worsening symptoms, pulsatile bleeding or bleeding stopped with direct pressure. Print Language: [place] Citizen Disposition Disposition: Home, Self Care Discharge Date/Time: 12/05/24 14:41
[2024-12-05 14:40] VITALS: BP 140/70; PULSE 84; RESP 18; TEMP 37; O2SAT 99
== END 2024-12-05 14:41 | disposition home or self-care (01) ==
PROVIDERS: Emergency Provider Student in an Organized Health Care Education/Training Program; PCP Family Medicine; Visit Provider Student in an Organized Health Care Education/Training Program
DX: S61.211A Laceration without foreign body of left index finger without damage to nail, initial encounter (principal); E78.00 Pure hypercholesterolemia, unspecified; Z87.891 Personal history of nicotine dependence; I10 Essential (primary) hypertension; W26.8XXA Contact with other sharp object(s), not elsewhere classified, initial encounter; Y93.H2 Activity, gardening and landscaping; Y92.096 Garden or yard of other non-institutional residence as the place of occurrence of the external cause; Z79.899 Other long term (current) drug therapy; K21.9 Gastro-esophageal reflux disease without esophagitis; Z79.82 Long term (current) use of aspirin; Z90.49 Acquired absence of other specified parts of digestive tract
CPT/HCPCS: 12001; 73130; 90715; 99282